=== PATIENT | female | born 1985 | race Caucasian/White ===

== ENCOUNTER 2018-07-15 08:57 | Inpatient (IN) | payer MEDICAID ==
[~2018-07-15] VITALS: Ht 157.5 cm; Wt 64.1 kg
[2018-07-15] MEDS ORDERED: PREN-93 PO (09:07)
[2018-07-15 09:08] VITALS: BP 119/75; PULSE 60; RESP 18
[2018-07-15 09:09] VITALS: Ht 157.5 cm; Wt 64.1 kg
[2018-07-15] MEDS ORDERED: LACTATED RINGER'S 1,000 ML IV SCH (09:22)
--- NOTE | 2018-07-15 09:22 | TRIAGE ---
OB Triage Datetime Report Generated by CPN: 07/15/2018 09:22 Datetime: 07/15/2018 09:16 Vaginal Exam Dilatation (cms): 5.0 Effacement (%): 80 Station: -2 Exam By: KHEMANI Vaginal Bleeding: Normal Show Cervix, Consistency: Soft Cervix, Position: Midposition Datetime: 07/15/2018 09:14 EGA: 40.1 Datetime: 07/15/2018 09:05 Assessment Type: Triage Maternal Assessment Level of Consciousness: Fully Conscious DTR's/Clonus: DTRs 2+; No Clonus Headache: Denies Blurred Vision: No Respiratory Effort: Unlabored; Regular Rhythm; Equal Expansion Breath Sounds, Left: Clear and Equal Breath Sounds, Right: Clear and Equal Nausea/Vomiting: Denies RUQ Epigastric Pain: Denies Lower Extremities Edema: None Degree: None Upper Extremities Edema: None Degree: None Facial Edema: None Fall Risk Assessment History of Falling: (0) No Secondary Diagnosis: (0) No Ambulatory Aid: (0) Bedrest/Nurse Assist IV Therapy: (0) No Gait: (0) Normal/Bedrest/Immobile Mental Status: (0) Oriented to Own Ability Fall Score: 0 Fall Risk Score Definition: No Risk: No action required Datetime: 07/15/2018 09:04 Time of Arrival: 07/15/2018 08:51 Arrived By: Ambulatory; Wheelchair Arrived From: Home Chief Complaint: pt. here c/o uc's Movement: Present Contractions: Irregular Rupture of Membranes: Denies Vaginal Bleeding: None Vaginal Discharge: Present Recent Sexual Intercouse: Denies Abdominal Trauma: Not Applicable Patient Complaints: Contractions; Cramping; Back Pain Time Provider Notified: 07/15/2018 09:20 Provider Notified: ESHAGHIAN Initial Plan: EFM/SVE Datetime: 07/15/2018 09:02 Labor Evaluation Monitor Mode: External Heart Rate Monitor Mode: External US
[2018-07-15] MEDS ORDERED: LIDOCAINE 1% (MPF) 30 ML INJ INJ PRN (09:30)
[2018-07-15] MEDS ORDERED: BUTORPHANOL 2 MG INJ IV PRN (09:30)
[2018-07-15] MEDS ORDERED: IBUPROFEN 600 MG TAB PO PRN (09:30)
[2018-07-15] MEDS ORDERED: CARBOPROST 250 MCG INJ IM PRN ×2 (09:30→13:30)
[2018-07-15] MEDS ORDERED: OXYTOCIN 30 UNITS/LR 500 ML IV PRN ×2 (09:30→13:30)
[2018-07-15] MEDS ORDERED: METHYLERGONOVINE 0.2 MG INJ IM PRN ×2 (09:30→13:30)
[2018-07-15] MEDS ORDERED: OXYTOCIN 30 UNITS/LR 500 ML IV SCH ×4 (09:30→13:24)
[2018-07-15] MEDS ORDERED: MISOPROSTOL 200 MCG TAB PR PRN ×2 (09:30→13:30)
[2018-07-15] MEDS ORDERED: FENTAnyl 2MCG/ML-ROPIV 0.2% 100 ML ONE (11:48)
--- NOTE | 2018-07-15 12:25 | PREOPHP ---
DATE OF ADMISSION: 07/15/2018 HISTORY OF PRESENT ILLNESS: Ms. Juan Alberto Jin is a 33-year-old 3, para 2, EDC 07/14/2018 intra uterine at 40 weeks and 1 day gestational age, admitted today in labor. She reports of hav ing contractions since early this morning. She denies any vaginal bleeding or discharge. Her prenat nc care took place at [facility]. PAST MEDICAL HISTORY: None. MEDICATIONS: vitamins. PAST SURGICAL HISTORY: None. OBSTETRICAL HISTORY: x2 vaginal delivery. GYNECOLOGIC HISTORY: 13, regular 3 to 4 days. Denies any sexually transmitted disease. Sexually ac tive with 1 partner. SOCIAL HISTORY: Denies any smoking, drugs or alcohol. FAMILY HISTORY: None. REVIEW OF SYSTEMS: All within normal except history of present illness. PHYSICAL EXAMINATION: HEENT: Within normal. LUNGS: CTA bilateral. CARDIOVASCULAR: S1, S2. Regular rate, rhythm. ABDOMEN: Gravid, nontender. Negative CVA bilateral. EXTREMITIES: Negative edema. No calf tenderness. PELVIC: Vaginal exam: 6 cm, 80%, -2 station, spontaneous rupture of membrane with positive meconium . heart tracing category 1. Tocometer: Regular contractions. ASSESSMENT: Intrauterine at term, in active labor. PLAN: Anticipated vaginal delivery. Dictated By: RASHIDA BARCENAS/TOSHA Conf#: [id number] DID#: [id number]
--- NOTE | 2018-07-15 13:24 | LDN ---
Date/Time of Note Date/Time of Note DATE: 07/15/18 TIME: 13:23 Delivery Summary Weeks of Gestation 40 Placenta Delivered: Spontaneously Meconium: Light Anesthesia type: Epidural Estimated blood loss: 200 Sponge & Needle done & correct: Yes All needle counts correct: Yes Any foreign bodies felt in the: No Infant Delivery Information Sex Sex: female Apgars 1 Minute: 8 5 Minute: 9 Suctioning Nose & mouth suctioned at willie: No Umbilical Cord Umbilical cord with: 3 Vessels Cord presentations: nuchal cord Nuchal cord present X: 1 Cord Blood was obtained: Yes RASHIDA BARCENAS MD Jul 15, 2018 13:24
[2018-07-15] MEDS ORDERED: WITCH HAZEL/GLYCERIN PAD PR PRN (13:30)
[2018-07-15] MEDS ORDERED: NACL 0.9% 3 ML SYG IV SCH (13:30)
[2018-07-15] MEDS ORDERED: OXYCODONE/ASPIRIN (4.88/325) TAB PO PRN ×2 (13:30)
[2018-07-15] MEDS ORDERED: ONDANSETRON 4 MG INJ IV PRN ×2 (13:30→14:00)
[2018-07-15] MEDS ORDERED: LANOLIN HPA 1 PKT TOP PRN (13:30)
[2018-07-15] MEDS ORDERED: ACETAMINOPHEN 325 MG TAB PO PRN (13:30)
--- NOTE | 2018-07-15 13:57 | PREAC ---
Date/Time of Note Date/Time of Note DATE: 07/15/18 TIME: 13:56 Anesthesia Eval and Record Evaluation Time Pre-Procedure Interview DATE: 07/15/18 TIME: 13:56 Age 33 Sex female NPO: 8 hrs Preoperative diagnosis IUP Planned procedure L&D Epidural Past Medical History Past Medical History: Includes Pulm: Asthma Surgery & Anesthesia Issues No known issue Meds Anticoagulation: No Beta Amanda within 24 hr: No Reason Beta Amanda not given: Pt. not on B-Amanda Reported Medications Vit No.124/Iron/FA ( Vitamin Tablet) 1 Each Tablet, 1 EACH PO DAILY, TAB 07/15/18 Current Medications Lactated Ringer's 1,000 ml @ 125 mls/hr Q8H IV Last administered on 07/15/18at 10:01; Admin Dose 125 MLS/HR; Start 07/15/18 at 09:22 Butorphanol Tartrate (Stadol) 2 mg Q2H PRN IV .PAIN; Start 07/15/18 at 09:30 Lidocaine (Xylocaine 1% (Mpf)) 30 ml ONCE PRN INJ .EPISIOTOMY; Start 07/15/18 at 09:30 Oxytocin/Lactated Ringer's 500 ml @ 500 mls/hr ONCE POST IV ; Start 07/15/18 at 09:30 Oxytocin/Lactated Ringer's 500 ml @ 125 mls/hr POST IV ; Start 07/15/18 at 09:30 Ibuprofen (Motrin) 600 mg ONCE PRN PO .PAIN 1-5; Start 07/15/18 at 09:30 Oxytocin/Lactated Ringer's 500 ml @ 0 mls/hr ONCE PRN IV .VAGINAL BLEEDING; Start 07/15/18 at 09:30 Methylergonovine Maleate (Methergine) 0.2 mg ONCE PRN IM .VAGINAL BLEEDING; Start 07/15/18 at 09:30 Carboprost Tromethamine (Hemabate) 250 mcg ONCE PRN IM .VAGINAL BLEEDING; Start 07/15/18 at 09:30 Misoprostol (Cytotec) 1,000 mcg ONCE PRN [place] .VAGINAL BLEEDING; Start 07/15/18 at 09:30 Oxytocin/Lactated Ringer's 500 ml @ 0 mls/hr FOR AUGMENTATION IV Last adm inistered on 07/15/18at 12:31; Admin Dose 1 MLS/HR; Start 07/15/18 at 12:30 Oxytocin/Lactated Ringer's 500 ml @ 50 mls/hr Q10H IV ; Start 07/15/18 at 13:24; Stop 07/15/18 at 23:23 IV Flush (NS 3 ml) 3 ml PER PROTOCOL IV ; Start 07/15/18 at 13:30 Ibuprofen (Motrin) 600 mg Q6 PO ; Start 07/15/18 at 18:00 Oxycodone/Aspirin (Percodan) 1 tab Q3H PRN PO .PAIN 1-5; Start 07/15/18 at 13:30 Oxycodone/Aspirin (Percodan) 2 tab Q3H PRN PO .PAIN 6-10; Start 07/15/18 at 13:30 Ondansetron HCl (Zofran Inj) 4 mg Q6H PRN IV NAUSEA/VOMITING; Start 07/15/18 at 13:30 Senna/Docusate Sodium (Senokot-S) 1 tab BID PO ; Start 07/15/18 at 21:00 Witch Antoinette/ Glycerin (Tucks Pads) 1 pad BEDSIDE MEDICATION PRN [place] .HE MORRHOID/EPISIOTOMY PAIN; Start 07/15/18 at 13:30 Benzocaine (Dermoplast [place]) 1 spray BEDSIDE MEDICATION PRN TOP .HEMMORHOID/EPISIOTOMY PAIN; Start 07/15/18 at 13:30 Lanolin (Lanolin Hpa) 1 applic BEDSIDE MEDICATION PRN TOP .NIPPLES; Start 07/15/18 at 13:30 Acetaminophen (Tylenol Tab) 650 mg Q4H PRN PO .TEMP; Start 07/15/18 at 13:30 Oxytocin/Lactated Ringer's 500 ml @ 0 mls/hr ONCE PRN IV .VAGINAL BLEEDING; Start 07/15/18 at 13:30 Methylergonovine Maleate (Methergine) 0.2 mg ONCE PRN IM .VAGINAL BLEEDING; Start 07/15/18 at 13:30 Carboprost Tromethamine (Hemabate) 250 mcg ONCE PRN IM .VAGINAL BLEEDING; Start 07/15/18 at 13:30 Misoprostol (Cytotec) 1,000 mcg ONCE PRN [place] .VAGINAL BLEEDING; Start 07/15/18 at 13:30 Meds reviewed: Yes Allergies Coded Allergies: No Known Allergy (Verified , 03/21/10) Allergies Reviewed: Yes Labs/Studies Labs Reviewed: Reviewed by anesthesiologist Result Diagram: 07/15/18 0940 Laboratory Tests 07/15/18 09:40 Blood Bank Test 07/15/18 09:40 Antibody Screen NEGATIVE Blood Type O POSITIVE Rh Immune Globulin Candidate NO test: Positive Studies: ECG Pre-procedure Exam Last vitals Vital Signs Date Temp Pulse Resp B/P (MAP) Pulse Ox O2 O2 Flow FiO2 Time Delivery Rate 07/15/18 98.4 60 18 119/75 Room Air 09:08 (90) Airway: Adequate mouth opening, Adequate thyromental dist Mallampati: Mallampati II Teeth: Normal Lung: Normal Heart: Normal ASA Physical Status ASA physical status: 2 Emergency: None Planned Anesthetic Neuraxial: Epidural Planned Pain Management Parenteral pain med Pre-operative Attestations Prior to commencing anesthesia and surgery, the patient was re-evaluated, there was verification of: *The patient's identity *The results of appropriate recent lab work and preoperative vital signs *The above evaluation not changing prior to induction *Anesthetic plan, risk benefits, alternative and complications discussed with patient/family; questions answered; patient/family understands, accepts and wish es to proceed. WISAM HERNANDEZ MD Jul 15, 2018 13:57
[2018-07-15] MEDS ORDERED: NALOXONE (0.4 MG/ML) INJ IV PRN (14:00)
[2018-07-15] MEDS ORDERED: FENTAnyl 2MCG/ML-ROPIV 0.2% 100 ML BAG EPI SCH (14:00)
[2018-07-15] MEDS ORDERED: DIPHENHYDRAMINE 50 MG INJ IV PRN (14:00)
--- NOTE | 2018-07-15 14:08 | PAC ---
Date/Time of Note Date/Time of Note DATE: 07/15/18 TIME: 14:07 Post-Anesthesia Notes Post-Anesthesia Note Last documented vital signs Vital Signs Date Temp Pulse Resp B/P (MAP) Pulse Ox O2 O2 Flow FiO2 Time Delivery Rate 07/15/18 98.4 60 18 119/75 Room Air 09:08 (90) Activity: WNL Respiratory function: WNL Cardiovascular function: WNL Mental status: Baseline Pain reasonably controlled: Yes Hydration appropriate: Yes Nausea/Vomiting absent: Yes Comments BP:112/56, P:78, Spo2:100%, T:98,8 WISAM HERNANDEZ MD Jul 15, 2018 14:08
[2018-07-15 15:10] VITALS: BP 137/77; PULSE 52; RESP 17
[2018-07-15] MEDS: IBUPROFEN 600 MG TAB PO SCH (17:54)
[2018-07-15 20:00] VITALS: BP 105/63; PULSE 65; RESP 19
[2018-07-15] MEDS ORDERED: ALBUTEROL HFA 8 GM INHALER INH PRN (21:00)
[2018-07-15] MEDS: BENZOCAINE 20% 56 ML SPRAY TOP PRN (21:20)
[2018-07-15] MEDS: SENNA/DOCUSATE NA (8.6MG/50MG) TAB PO SCH (21:21)
[2018-07-16] VITALS: BP 102/69; PULSE 68; RESP 18
[2018-07-16] MEDS: IBUPROFEN 600 MG TAB PO SCH ×5 (00:06→23:52)
[2018-07-16 04:00] VITALS: BP 100/58; PULSE 57; RESP 18
[2018-07-16 08:42] VITALS: BP 100/69; PULSE 65; RESP 18
[2018-07-16] MEDS: SENNA/DOCUSATE NA (8.6MG/50MG) TAB PO SCH ×2 (09:27→21:22)
--- NOTE | 2018-07-16 11:06 | DS ---
Date/Time of Note Date/Time of Note DATE: 07/16/18 TIME: 11:05 Obstetrical Discharge Record Final Diagnosis Final Diagnosis: Term delivered Vaginal Delivery Obstetrical Delivery: Spontaneous Condition on Discharge Physical Assessment Last Vitals: stable afebrile Voiding: Yes Bowel Movement: Yes Breast: Soft, non-tender, Filling Fundus: Firm Abdomen and Incision: soft nt Calf Tenderness: No Patient Condition: Fair RASHIDA BARCENAS MD Jul 16, 2018 11:06
--- NOTE | 2018-07-16 11:07 | PD.PPDC ---
SPEECH AND LANGUAGE ASSISTANT Discharge Instruction Condition [id number] Patient Condition: [id number] Fair Diet [id number] Diet: [id number] Resume Regular Diet Activity/Restrictions [id number] Activity: [id number] Normal Activity May Shower [id number] Restrictions: [id number] No Exercising No Lifting No Driving No Sexual Activity Nothing in the Vagina No [place] No Tampons, douche Follow-up Follow-up with Physician: 3, Week/Weeks Return to clinic for [id number] AIR TECHNICIAN Instructions: [id number] Fever greater than 101 Chills Worsening abdominal pain Excessive Vaginal Bleeding More than 2 pads per hour Unable to tolerate diet [id number] OB Instructions: Fyztx2s Breast Tenderness Depression Blurried Vision Headache RASHIDA BARCENAS MD Jul 16, 2018 11:07
[2018-07-16 15:47] VITALS: BP 116/74; PULSE 60; RESP 18
[2018-07-16 20:00] VITALS: BP 114/75; PULSE 66; RESP 20
[2018-07-17 04:00] VITALS: BP 97/63; PULSE 56; RESP 16
[2018-07-17] MEDS: IBUPROFEN 600 MG TAB PO SCH ×2 (05:28→12:00)
[2018-07-17] MEDS: BENZOCAINE 20% 56 ML SPRAY TOP PRN (06:56)
[2018-07-17 08:00] VITALS: BP 106/61; PULSE 73; RESP 18
[2018-07-17] MEDS: SENNA/DOCUSATE NA (8.6MG/50MG) TAB PO SCH (09:00)
== END 2018-07-17 14:37 | disposition home or self-care (01) | DRG 807 ==
LOC: L-D 08:57 → OBT 08:57 → L-D 09:20 → OBT 09:21 → PP1 14:51
PROVIDERS: ADMIT Obstetrics & Gynecology; ATTEND Obstetrics & Gynecology
PROC: 10E0XZZ Delivery of Products of Conception, External Approach (ICD-10-PCS; principal; 2018-07-15)
DX: O48.0 Post-term pregnancy (principal); Z37.0 Single live birth; Z3A.40 40 weeks gestation of pregnancy; O69.81X0 Labor and delivery complicated by cord around neck, without compression, not applicable or unspecified
CPT/HCPCS: 62319; 76815; 85014; 85018; 85025; 85610; 85730; 86592; 86850; 86900; 86901; 87340; 99464; A4310; G0463; J2590; J3010; J7120

== ENCOUNTER 2018-08-16 19:37 | Inpatient (IN) | payer MEDICAID ==
[~2018-08-16] VITALS: Ht 129.5 cm; Wt 58.5 kg
[~2018-08-16 19:37] MED LIST: PREN-93 PO
[2018-08-16] MEDS ORDERED: SODIUM CHLORIDE 0.9% 1L BAG IV* STA (20:48)
[2018-08-16] MEDS ORDERED: KETOROLAC 30 MG INJ IV STA (20:48)
[2018-08-16] MEDS ORDERED: AMPICILLIN/SULB 3 GM/NS (PMX) 100 ML IVPB ONE (22:00)
[2018-08-16] MEDS ORDERED: CEFTRIAXONE 1 GM/50 ML (PMX) 50 ML IVPB ONE (23:30)
--- NOTE | 2018-08-16 23:32 | ERD ---
ER Documentation Chief Complaint Chief Complaint fever x 1 week; bodyaches HPI 33-year-old female with no significant past medical history 33 days presenting with 2 weeks of fevers, body aches, chills. She was seen at another ER but only given ibuprofen without any testing done. She states that she is breast-feeding but is unable to get much out of her right breast. She has noticed a mass for the past 2 weeks that is painful and progressively worsening. She denies any chest pain, shortness of breath, cough, headache, neck stiffness, sore throat, recent URI, abdominal pain, vomiting or diarrhea. No dysuria. No vaginal discharge. No intercourse since delivery. ROS All systems reviewed and are negative except as per history of present illness. Medications Home Meds Reported Medications Vit No.124/Iron/FA ( Vitamin Tablet) 1 Each Tablet, 1 EACH PO DAILY, TAB 07/15/18 Allergies Allergies: Coded Allergies: No Known Allergy (Verified , 03/21/10) PMhx/Soc Medical and Surgical Hx: pt denies Medical Hx, pt denies Surgical Hx History of Surgery: Yes (Right breast lumpectomy) Hx Miscellaneous Medical Probl: Yes (vaginal 33 days ago. History of breast masses that were removed from the right breast, states not malignant) Hx Alcohol Use: No Hx Substance Use: No Hx Tobacco Use: No Smoking Status: Unknown if ever smoked FmHx Family History: No diabetes Physical Exam Vitals Vital Signs Date Temp Pulse Resp B/P (MAP) Pulse Ox O2 O2 Flow FiO2 Time Delivery Rate 08/16/18 92 23 101/71 98 Room Air 22:30 (81) 08/16/18 98.9 98 16 107/72 98 Room Air 20:28 (84) 08/16/18 101.6 102 18 119/67 98 19:40 (84) Physical Exam Const: No acute distress, nontoxic Head: Atraumatic Eyes: Bilateral conjunctival injection. ENT: Normal External Ears, Nose and Mouth. posterior oropharynx normal without erythema or exudate. Neck: Full range of motion. No meningismus. Resp: Clear to auscultation bilaterally Breast: Right breast with firm mass at 9:00. No overlying erythema. It is tender to palpation without fluctuance. Left breast without any masses. Cardio: Tachycardic with regular rhythm, no murmurs Abd: Soft, non tender, non distended. No masses. Normal bowel sounds Skin: No petechiae or rashes Back: No midline or flank tenderness Ext: No cyanosis, or edema Neur: Awake and alert, normal speech, no facial asymmetry, moving all extremities Psych: Normal Mood and Affect Result Diagram: 08/16/18201708/16/182017 Results 24 hrs Laboratory Tests Test 08/16/18 20:18 08/16/18 22:36 08/16/18 23:14 08/16/18 23:16 White Blood Count 14.4 10^3/ul Red Blood Count 4.16 10^6/ul Hemoglobin 12.7 g/dl Hematocrit 38.2 % Mean Corpuscular 91.8 fl Volume Mean Corpuscular 30.5 pg Hemoglobin Mean Corpuscular 33.2 g/dl Hemoglobin Concent Red Cell 12.7 % Distribution Width Platelet Count 323 10^3/UL Mean Platelet 8.9 fl Volume Immature 0.600 % Granulocytes % Neutrophils % 77.2 % Lymphocytes % 8.1 % Monocytes % 6.5 % Eosinophils % 7.1 % Basophils % 0.5 % Nucleated Red 0.0 /100WBC Blood Cells % Immature 0.080 10^3/ul Granulocytes # Neutrophils # 11.1 10^3/ul Lymphocytes # 1.2 10^3/ul Monocytes # 0.9 10^3/ul Eosinophils # 1.0 10^3/ul Basophils # 0.1 10^3/ul Nucleated Red 0.0 10^3/ul Blood Cells # Urine Color YELLOW Urine Clarity CLEAR Urine pH 5.0 Urine Specific 1.025 [place] Urine Ketones NEGATIVE mg/dL Urine Nitrite NEGATIVE mg/dL Urine Bilirubin NEGATIVE mg/dL Urine Urobilinogen NEGATIVE mg/dL Urine Leukocyte 1+ Marie/ul Esterase Urine Microscopic 4 /HPF RBC Urine Microscopic 13 /HPF WBC Urine Squamous FEW /HPF Epithelial Cells Urine Hemoglobin 1+ mg/dL Urine Glucose NEGATIVE mg/dL Urine Total NEGATIVE mg/dl Protein Sodium Level 141 mmol/L Potassium Level 4.1 mmol/L Chloride Level 107 mmol/L Carbon Dioxide 26 mmol/L Level Anion Gap 8 Blood Urea 12 mg/dl Nitrogen Creatinine 0.93 mg/dl Est Glomerular > 60 mL/min Filtrat Rate mL/min Glucose Level 116 mg/dl Lactic Acid Level 1.3 mmol/L 0.7 mmol/L Calcium Level 9.2 mg/dl Total Bilirubin 0.2 mg/dl Direct Bilirubin 0.00 mg/dl Indirect Bilirubin 0.2 mg/dl Aspartate Amino 22 IU/L Transf (AST/SGOT) Alanine 21 IU/L Aminotransferase ( ALT/SGPT) Alkaline 112 IU/L Phosphatase Creatine Kinase 22 IU/L Total Protein 7.2 g/dl Albumin 3.8 g/dl Globulin 3.40 g/dl Albumin/Globulin 1.11 Ratio Bedside Urine pH 5.5 (LAB) Bedside Urine Negative Protein (LAB) Bedside Urine Negative Glucose (UA) Bedside Urine Negative Ketones (LAB) Bedside Urine Trace-lysed Blood Bedside Urine Negative Nitrite (LAB) Bedside Urine Trace Leukocyte Esterase (L POC Beta HCG, NEGATIVE Qualitative Current Medications Medications Dose Sig/Dennis Start Time Status Last (Trade) Ordered Route PRN Stop Time Admin Dose Reason Admin Sodium 1,700 ml BOLUS OVER 2 08/16/18 DC 08/16/18 Chloride HOURS STAT 20:48 21:01 (NS) IV* 08/16/18 20:51 Ketorolac 30 mg ONCE STAT 08/16/18 DC 08/16/18 Tromethamine IV 20:48 21:03 (Toradol) 08/16/18 20:51 Ampicillin 100 ml @ ONCE ONCE 08/16/18 DC 08/16/18 Sodium/ 100 mls/hr IVPB 22:00 22:15 Sulbactam 08/16/18 22:59 Sodium Ceftriaxone 50 ml @ ONCE ONCE 08/16/18 Sodium 100 mls/hr IVPB 23:30 08/16/18 23:59 Ondansetron 4 mg BRIDGE ORDER 08/17/18 HCl (Zofran PRN IV 00:00 08/17/18 Inj) NAUSEA/VOMITI 23:59 NG 650 mg ER BRIDGE 08/17/18 Acetaminophen PRN PO 00:00 08/17/18 (Tylenol .MILD PAIN 23:59 Tab) 1-3 OR TEMP Procedures/MDM EMERGENT LABS AND DIAGNOSTIC STUDIES: Lab Results above were reviewed and interpreted by me. CBC: Leukocytosis, unclear etiology. No evidence of anemia CMP: No evidence of electrolyte abnormality, renal failure, hypoglycemia, liver failure, or biliary obstruction Lactate within normal limits without evidence of sepsis or tissue hypoperfusion UA: no evidence of infection Radiology Results as interpreted by Radiology below were reviewed by Crissy barlow MD: Chest x-ray shows no acute abnormalities Pelvic ultrasound pending Initial Nursing notes reviewed. Previous Medical Records requested via the Electronic Health Record. EMERGENCY DEPARTMENT COURSE / MEDICAL DECISION MAKING: Patient is presenting with fever and chills for the past 2 weeks. Fevers of unknown origin. She was febrile and tachycardic upon arrival. However code sepsis was not activated as patient does not have a source of infection. Upon further evaluation, the patient does seem to have a right breast mass, but exam is not consistent with mastitis. Ultrasound was done and it seems like the mass appears concerning for possible malignancy. The source of her fever is unclear at this time. Patient does not have good outpatient follow-up and will need admission for further workup of her breast mass as well as further workup for her fever. Blood cultures are pending. Antibiotics given. Low suspicion for pelvic infection. Accepting Care Team: Current data and ongoing care discussed. Time: Time of admission Primary Provider: Dr. Avila Consulting: None Outstanding Data: Pelvic ultrasound Departure Diagnosis: Primary Impression: Fever of unknown origin Additional Impression: Breast mass, right Condition: Fair LEATHA CISSE MD Aug 16, 2018 23:31
--- NOTE | 2018-08-16 23:59 | HP ---
Date/Time of Note Date/Time of Note DATE: 08/16/18 TIME: 23:59 Assessment/Plan VTE Prophylaxis SCD applied (from Nsg): Yes Pharmacological prophylaxis: NA/contraindicated Pharm contraindication: other (Patient with right breast mass, awaiting biopsy.) Lines/Catheters IV Catheter Type (from Nrsg): Peripheral IV Assessment/Plan Assessment/Plan 1. Right breast mass, highly suspicious for malignancy -Obtain biopsy -Oncology consult 2. Sepsis: As evidenced by fever and tachycardia and leukocytosis:, Likely secondary to UTI and possibly right breast cellulitis as well -IV antibiotic -Follow-up urine culture and blood culture results 3. History of asthma: No sign of acute exacerbation Result Diagram: 08/16/18201708/16/182017 Results 24hrs Laboratory Tests Test 08/16/18 20:18 08/16/18 22:36 08/16/18 23:14 08/16/18 23:16 White Blood Count 14.4 #H Red Blood Count 4.16 L Hemoglobin 12.7 Hematocrit 38.2 Mean Corpuscular 91.8 Volume Mean Corpuscular 30.5 Hemoglobin Mean Corpuscular 33.2 Hemoglobin Concent Red Cell 12.7 Distribution Width Platelet Count 323 # Mean Platelet 8.9 Volume Immature 0.600 H Granulocytes % Neutrophils % 77.2 H Lymphocytes % 8.1 L Monocytes % 6.5 Eosinophils % 7.1 H Basophils % 0.5 Nucleated Red Blood 0.0 Cells % Immature 0.080 H Granulocytes # Neutrophils # 11.1 H Lymphocytes # 1.2 Monocytes # 0.9 Eosinophils # 1.0 H Basophils # 0.1 Nucleated Red Blood 0.0 Cells # Urine Color YELLOW Urine Clarity CLEAR Urine pH 5.0 Urine Specific 1.025 [place] Urine Ketones NEGATIVE Urine Nitrite NEGATIVE Urine Bilirubin NEGATIVE Urine Urobilinogen NEGATIVE Urine Leukocyte 1+ H Esterase Urine Microscopic 4 RBC Urine Microscopic 13 H WBC Urine Squamous FEW Epithelial Cells Urine Hemoglobin 1+ H Urine Glucose NEGATIVE Urine Total Protein NEGATIVE Sodium Level 141 Potassium Level 4.1 Chloride Level 107 Carbon Dioxide 26 Level Anion Gap 8 Blood Urea Nitrogen 12 Creatinine 0.93 Est Glomerular > 60 Filtrat Rate mL/min Glucose Level 116 Lactic Acid Level 1.3 0.7 Calcium Level 9.2 Total Bilirubin 0.2 Direct Bilirubin 0.00 Indirect Bilirubin 0.2 Aspartate Amino 22 Transf (AST/SGOT) Alanine 21 Aminotransferase (A LT/SGPT) Alkaline 112 Phosphatase Creatine Kinase 22 L Total Protein 7.2 Albumin 3.8 Globulin 3.40 H Albumin/Globulin 1.11 Ratio Bedside Urine pH 5.5 (LAB) Bedside Urine Negative Protein (LAB) Bedside Urine Negative Glucose (UA) Bedside Urine Negative Ketones (LAB) Bedside Urine Blood Trace-lysed H Bedside Urine Negative Nitrite (LAB) Bedside Urine Trace H Leukocyte Esterase (L POC Beta HCG, NEGATIVE Qualitative HPI/ROS Admit Date/Time Admit Date/Time Hx of Present Illness This is a 33-year-old female asthma who is 33 days who presents the ER complaining of fever, generalized body ache X 2 weeks. She also complains of right breast mass. Denied chest pain, shortness of breath, diarrhea. Who presents the ER, she was febrile with temperature 100.6, heart rate 102, WBC 14.4, UA consistent with UTI. Ultrasound of the breast unfortunately highly suspicion for right breast carcinoma. PMH/Family/Social Past Medical History Medical History: other (See HPI) Medications Current Medications Ondansetron HCl (Zofran Inj) 4 mg BRIDGE ORDER PRN IV NAUSEA/VOMITING; Start 08/17/18 at 00:00; Stop 08/17/18 at 23:59 Acetaminophen (Tylenol Tab) 650 mg ER BRIDGE PRN PO .MILD PAIN 1-3 OR TEMP; Start 08/17/18 at 00:00; Stop 08/17/18 at 23:59 Coded Allergies: No Known Allergy (Verified , 03/21/10) Past Surgical History Past Surgical Hx: other (See HPI) Family History Significant Family History: other Social History Alcohol Use: none Smoking Status: Unknown if ever smoked Drug Use: none Exam/Review of Systems Vital Signs Vitals Vital Signs Date Temp Pulse Resp B/P (MAP) Pulse Ox O2 O2 Flow FiO2 Time Delivery Rate 08/16/18 98.6 86 19 100/74 100 Room Air 23:55 (83) Exam Constitutional: alert, oriented, well developed Head: normocephalic, atraumatic Eyes: EOMI, PERRL Respiratory: clear to auscultation Cardiovascular: regular rate and rhythm Gastrointestinal: soft, non-tender Extremities: edema Additional Comments Right breast swelling/mass DIANA COURTNEY MD Aug 16, 2018 23:59
[2018-08-17] VITALS (7 sets, daily range): BP systolic 91–110; BP diastolic 62–69; PULSE 72–98; RESP 17–19; Ht 129.5 cm; Wt 58.5 kg
[2018-08-17] MEDS ORDERED: ONDANSETRON 4 MG INJ IV PRN ×2 (00:30)
[2018-08-17] MEDS ORDERED: NACL 0.9% 3 ML SYG IV SCH (00:30)
[2018-08-17] MEDS ORDERED: VANCOMYCIN IV PER PHARMACY XX SCH (00:30)
[2018-08-17] MEDS ORDERED: ACETAMINOPHEN 325 MG TAB PO PRN ×2 (00:30)
[2018-08-17] MEDS ORDERED: AMPICILLIN/SULB 3 GM/NS (PMX) 100 ML IVPB SCH (00:30)
[2018-08-17] MEDS: SOD CHLORIDE 0.9% 1,000 ML IV SCH ×3 (01:24→18:46)
[2018-08-17] MEDS ORDERED: VANCOMYCIN HCL 1.25 GM in SOD CHLORIDE 0.9% 250 ML IVPB SCH (05:00)
[2018-08-17] MEDS: HYDROCODONE/APAP (5/325) TAB PO PRN ×2 (06:08→15:58)
--- NOTE | 2018-08-17 10:58 | PN ---
Date/Time of Note Date/Time of Note DATE: 08/17/18 TIME: 10:55 Assessment/Plan VTE Prophylaxis SCD applied (from Nsg): Yes Pharmacological prophylaxis: NA/contraindicated Pharm contraindication: low risk/ambulating Lines/Catheters IV Catheter Type (from Nrsg): Peripheral IV Assessment/Plan Hospital Course SUBJECTIVE: Continues to complain of generalized body aches. OBJECTIVE: Physical Exam General: Adequately build 33 year-old female lying in bed in no apparent distress. HEENT: Normocephalic, atraumatic. Eyes: Anicteric sclerae, conjunctivae clear. ENT: Nasal septum midline, oral mucosa moist. Neck supple, no JVD noticed. Respiratory: Bilaterally diminished breath sounds. No use of accessory muscles of respiration. No adventitious breath sounds. Cardiovascular: S1, S2 heard. Regular rate and rhythm. Abdomen: Soft, nontender, and nondistended. Bowel sounds positive in all 4 quadrants. Genitourinary: Deferred. Extremities: No cyanosis, no clubbing. RUE edema. Peripheral pulses palpable. Neurologic: Cranial nerves II through XII grossly intact. The patient is awake, alert, and oriented. Breasts (examined in the presence of a female cooler room worker): Right breast edema and tenderness. Palpable mass on the right breast at the 9 o'clock position. Left breast within normal limits. Labs & Vitals per chart ASSESSMENT & PLAN This is a 33-year-old female who had a normal vaginal delivery on 07/15/2018. The patient has a prior history of fibroma of the right breast approximately 3 years ago status post surgical removal. The patient came to the emergency room with chief complaint of fevers, chills, generalized body aches, and right breast pain that has been going on for the past 2 weeks. The patient had underlying leukocytosis, febrile illness (101.6), and tachycardia, present on admission. The patient was admitted inpatient setting for further treatment and evaluation. 1. Sepsis with leukocytosis, tachycardia, and febrile illness, present on admission. -Most probably secondary to underlying right-sided mastitis -Continue antimicrobials including coverage for anaerobes and MRSA. -ID consult for antimicrobial management. -Obtain andrade cultures. 2. Lactational mastitis. -Continue Unasyn with vancomycin. -Obtain cultures of right breast secretion/milk. 3. Palpable 4 x 2.7 x 4.3 cm heterogeneous echotexture largely hypoechoic solid appearing mass of the right breast. -CT-guided biopsy ordered. -Obtain surgical consult. 4. Breast feeding status. - Pump and dump. 5. Asthma. -Stable. -No evidence of any exacerbation. 6. Fluids, electrolytes, and nutrition. -Regular diet. 7. DVT prophylaxis. -Bilateral SCDs. 8. Plan. -Continue pain control. -Continue empiric antimicrobials. -Await surgical consult and IR guided biopsy. The patient was seen in collaboration with Dr. Mendoza. Result Diagram: 08/17/18 0452 08/17/18 0451 Results 24hrs Laboratory Tests Test 08/16/18 20:18 08/16/18 22:36 08/16/18 23:14 08/16/18 23:16 White Blood Count 14.4 #H Red Blood Count 4.16 L Hemoglobin 12.7 Hematocrit 38.2 Mean Corpuscular 91.8 Volume Mean Corpuscular 30.5 Hemoglobin Mean Corpuscular 33.2 Hemoglobin Concent Red Cell 12.7 Distribution Width Platelet Count 323 # Mean Platelet 8.9 Volume Immature 0.600 H Granulocytes % Neutrophils % 77.2 H Lymphocytes % 8.1 L Monocytes % 6.5 Eosinophils % 7.1 H Basophils % 0.5 Nucleated Red Blood 0.0 Cells % Immature 0.080 H Granulocytes # Neutrophils # 11.1 H Lymphocytes # 1.2 Monocytes # 0.9 Eosinophils # 1.0 H Basophils # 0.1 Nucleated Red Blood 0.0 Cells # Urine Color YELLOW Urine Clarity CLEAR Urine pH 5.0 Urine Specific 1.025 [place] Urine Ketones NEGATIVE Urine Nitrite NEGATIVE Urine Bilirubin NEGATIVE Urine Urobilinogen NEGATIVE Urine Leukocyte 1+ H Esterase Urine Microscopic 4 RBC Urine Microscopic 13 H WBC Urine Squamous FEW Epithelial Cells Urine Hemoglobin 1+ H Urine Glucose NEGATIVE Urine Total Protein NEGATIVE Sodium Level 141 Potassium Level 4.1 Chloride Level 107 Carbon Dioxide 26 Level Anion Gap 8 Blood Urea Nitrogen 12 Creatinine 0.93 Est Glomerular > 60 Filtrat Rate mL/min Glucose Level 116 Lactic Acid Level 1.3 0.7 Calcium Level 9.2 Total Bilirubin 0.2 Direct Bilirubin 0.00 Indirect Bilirubin 0.2 Aspartate Amino 22 Transf (AST/SGOT) Alanine 21 Aminotransferase (A LT/SGPT) Alkaline 112 Phosphatase Creatine Kinase 22 L Total Protein 7.2 Albumin 3.8 Globulin 3.40 H Albumin/Globulin 1.11 Ratio Bedside Urine pH 5.5 (LAB) Bedside Urine Negative Protein (LAB) Bedside Urine Negative Glucose (UA) Bedside Urine Negative Ketones (LAB) Bedside Urine Blood Trace-lysed H Bedside Urine Negative Nitrite (LAB) Bedside Urine Trace H Leukocyte Esterase (L POC Beta HCG, NEGATIVE Qualitative Test 08/17/18 01:06 08/17/18 04:51 08/17/18 04:52 Lactic Acid Level 0.7 Sodium Level 140 Potassium Level 4.0 Chloride Level 109 Carbon Dioxide 24 Level Anion Gap 7 Blood Urea Nitrogen 12 Creatinine 0.57 Est Glomerular > 60 Filtrat Rate mL/min Glucose Level 97 Calcium Level 8.2 L Phosphorus Level 3.2 Magnesium Level 1.8 Total Bilirubin 0.2 Direct Bilirubin 0.00 Indirect Bilirubin 0.2 Aspartate Amino 19 Transf (AST/SGOT) Alanine 25 Aminotransferase (A LT/SGPT) Alkaline 97 Phosphatase Total Protein 6.1 # Albumin 3.1 L Globulin 3.00 Albumin/Globulin 1.03 Ratio White Blood Count 12.9 H Red Blood Count 3.86 L Hemoglobin 11.8 L Hematocrit 35.4 L Mean Corpuscular 91.7 Volume Mean Corpuscular 30.6 Hemoglobin Mean Corpuscular 33.3 Hemoglobin Concent Red Cell 12.8 Distribution Width Platelet Count 264 Mean Platelet 9.0 Volume Immature 0.500 H Granulocytes % Neutrophils % 76.2 Lymphocytes % 9.3 L Monocytes % 7.2 Eosinophils % 6.5 Basophils % 0.3 Nucleated Red Blood 0.0 Cells % Immature 0.060 H Granulocytes # Neutrophils # 9.8 H Lymphocytes # 1.2 Monocytes # 0.9 Eosinophils # 0.8 H Basophils # 0.0 Nucleated Red Blood 0.0 Cells # Exam/Review of Systems Exam Vitals Vital Signs Date Temp Pulse Resp B/P (MAP) Pulse Ox O2 O2 Flow FiO2 Time Delivery Rate 08/17/18 98.2 72 18 100/64 94 Room Air 07:58 (76) Intake and Output 08/16/18 08/16/18 08/17/18 1515:00 23:00 07:00 IntakeIntake Total 1700 ml 673.333 ml BalanceBalance 1700 ml 673.333 ml Results Results 24hrs Laboratory Tests Test 08/16/18 20:18 08/16/18 22:36 08/16/18 23:14 08/16/18 23:16 White Blood Count 14.4 #H Red Blood Count 4.16 L Hemoglobin 12.7 Hematocrit 38.2 Mean Corpuscular 91.8 Volume Mean Corpuscular 30.5 Hemoglobin Mean Corpuscular 33.2 Hemoglobin Concent Red Cell 12.7 Distribution Width Platelet Count 323 # Mean Platelet 8.9 Volume Immature 0.600 H Granulocytes % Neutrophils % 77.2 H Lymphocytes % 8.1 L Monocytes % 6.5 Eosinophils % 7.1 H Basophils % 0.5 Nucleated Red Blood 0.0 Cells % Immature 0.080 H Granulocytes # Neutrophils # 11.1 H Lymphocytes # 1.2 Monocytes # 0.9 Eosinophils # 1.0 H Basophils # 0.1 Nucleated Red Blood 0.0 Cells # Urine Color YELLOW Urine Clarity CLEAR Urine pH 5.0 Urine Specific 1.025 [place] Urine Ketones NEGATIVE Urine Nitrite NEGATIVE Urine Bilirubin NEGATIVE Urine Urobilinogen NEGATIVE Urine Leukocyte 1+ H Esterase Urine Microscopic 4 RBC Urine Microscopic 13 H WBC Urine Squamous FEW Epithelial Cells Urine Hemoglobin 1+ H Urine Glucose NEGATIVE Urine Total Protein NEGATIVE Sodium Level 141 Potassium Level 4.1 Chloride Level 107 Carbon Dioxide 26 Level Anion Gap 8 Blood Urea Nitrogen 12 Creatinine 0.93 Est Glomerular > 60 Filtrat Rate mL/min Glucose Level 116 Lactic Acid Level 1.3 0.7 Calcium Level 9.2 Total Bilirubin 0.2 Direct Bilirubin 0.00 Indirect Bilirubin 0.2 Aspartate Amino 22 Transf (AST/SGOT) Alanine 21 Aminotransferase (A LT/SGPT) Alkaline 112 Phosphatase Creatine Kinase 22 L Total Protein 7.2 Albumin 3.8 Globulin 3.40 H Albumin/Globulin 1.11 Ratio Bedside Urine pH 5.5 (LAB) Bedside Urine Negative Protein (LAB) Bedside Urine Negative Glucose (UA) Bedside Urine Negative Ketones (LAB) Bedside Urine Blood Trace-lysed H Bedside Urine Negative Nitrite (LAB) Bedside Urine Trace H Leukocyte Esterase (L POC Beta HCG, NEGATIVE Qualitative Test 08/17/18 01:06 08/17/18 04:51 08/17/18 04:52 Lactic Acid Level 0.7 Sodium Level 140 Potassium Level 4.0 Chloride Level 109 Carbon Dioxide 24 Level Anion Gap 7 Blood Urea Nitrogen 12 Creatinine 0.57 Est Glomerular > 60 Filtrat Rate mL/min Glucose Level 97 Calcium Level 8.2 L Phosphorus Level 3.2 Magnesium Level 1.8 Total Bilirubin 0.2 Direct Bilirubin 0.00 Indirect Bilirubin 0.2 Aspartate Amino 19 Transf (AST/SGOT) Alanine 25 Aminotransferase (A LT/SGPT) Alkaline 97 Phosphatase Total Protein 6.1 # Albumin 3.1 L Globulin 3.00 Albumin/Globulin 1.03 Ratio White Blood Count 12.9 H Red Blood Count 3.86 L Hemoglobin 11.8 L Hematocrit 35.4 L Mean Corpuscular 91.7 Volume Mean Corpuscular 30.6 Hemoglobin Mean Corpuscular 33.3 Hemoglobin Concent Red Cell 12.8 Distribution Width Platelet Count 264 Mean Platelet 9.0 Volume Immature 0.500 H Granulocytes % Neutrophils % 76.2 Lymphocytes % 9.3 L Monocytes % 7.2 Eosinophils % 6.5 Basophils % 0.3 Nucleated Red Blood 0.0 Cells % Immature 0.060 H Granulocytes # Neutrophils # 9.8 H Lymphocytes # 1.2 Monocytes # 0.9 Eosinophils # 0.8 H Basophils # 0.0 Nucleated Red Blood 0.0 Cells # Medications Medication Current Medications Ondansetron HCl (Zofran Inj) 4 mg BRIDGE ORDER PRN IV NAUSEA/VOMITING; Start 08/17/18 at 00:00; Stop 08/17/18 at 23:59 Acetaminophen (Tylenol Tab) 650 mg ER BRIDGE PRN PO .MILD PAIN 1-3 OR TEMP; Start 08/17/18 at 00:00; Stop 08/17/18 at 23:59 Sodium Chloride 1,000 ml @ 125 mls/hr Q8H IV Last administered on 08/17/18at 01:24; Admin Dose 125 MLS/HR; Start 08/17/18 at 00:02 IV Flush (NS 3 ml) 3 ml PER PROTOCOL IV ; Start 08/17/18 at 00:30 Ondansetron HCl (Zofran Inj) 4 mg Q6H PRN IV NAUSEA/VOMITING; Start 08/17/18 at 00:30 Acetaminophen (Tylenol Tab) 650 mg Q6H PRN PO .PAIN 1-3 OR TEMP; Start 08/17/18 at 00:30 Acetaminophen/ Hydrocodone Bitart ([place] (5/325)) 1 tab Q6H PRN PO .MOD PAIN 4- 6 Last administered on 08/17/18at 06:08; Admin Dose 1 TAB; Start 08/17/18 at 00:30 Vancomycin HCl (Vanco Iv Per Pharmacy) VANCOMYCIN PER PHARMACY PER PROTOCOL XX ; Start 08/17/18 at 00:30 Ampicillin Sodium/ Sulbactam Sodium 100 ml @ 100 mls/hr Q6 IVPB ; Start 08/17/18 at 12:00 Morphine Sulfate (morphine) 2 mg Q4H PRN IV SEVERE PAIN LEVEL 7-10; Start 08/17/18 at 11:00 JEFF ANTHONY NP Aug 17, 2018 10:58
--- NOTE | 2018-08-17 11:01 | CONS ---
Assessment/Plan Assessment/Plan Hospital Course (Demo Recall) 1) Mastitis doubt breast mass is a tumor given the rapid growth of it continue with vanco/unasyn this is large enough that IR drainage would be recommended agree with getting cx from R breast milk as well as from likely drainage fluid 2) hx of asthma no issues currently Consultation Date/Type/Reason Admit Date/Time Date of Consultation: Aug 17, 2018 Type of Consult ID Date/Time of Note DATE: 08/17/18 TIME: 10:56 Hx of Present Illness pt had a normal vaginal delivery about 34 days ago two weeks ago she started having some fevers and chills with R painful breast area she went to a clinic and was told to apply heat and take motrin but no antibiotics Things did not improved and she was admitted to the hospital via the ER no cough, SOB, V, D she feels achey all over she has a hx of breast nodules 3 years ago no sick contacts less breast milk has been coming out of R breast Past Medical History asthma Medical History: other (See HPI) Home Meds Reported Medications Vit No.124/Iron/FA ( Vitamin Tablet) 1 Each Tablet, 1 EACH PO DAILY, TAB 07/15/18 Medications Current Medications Ondansetron HCl (Zofran Inj) 4 mg BRIDGE ORDER PRN IV NAUSEA/VOMITING; Start 08/17/18 at 00:00; Stop 08/17/18 at 23:59 Acetaminophen (Tylenol Tab) 650 mg ER BRIDGE PRN PO .MILD PAIN 1-3 OR TEMP; Start 08/17/18 at 00:00; Stop 08/17/18 at 23:59 Sodium Chloride 1,000 ml @ 125 mls/hr Q8H IV Last administered on 08/17/18at 01:24; Admin Dose 125 MLS/HR; Start 08/17/18 at 00:02 IV Flush (NS 3 ml) 3 ml PER PROTOCOL IV ; Start 08/17/18 at 00:30 Ondansetron HCl (Zofran Inj) 4 mg Q6H PRN IV NAUSEA/VOMITING; Start 08/17/18 at 00:30 Acetaminophen (Tylenol Tab) 650 mg Q6H PRN PO .PAIN 1-3 OR TEMP; Start 08/17/18 at 00:30 Acetaminophen/ Hydrocodone Bitart ([place] (5/325)) 1 tab Q6H PRN PO .MOD PAIN 4- 6 Last administered on 08/17/18at 06:08; Admin Dose 1 TAB; Start 08/17/18 at 00:30 Vancomycin HCl (Vanco Iv Per Pharmacy) VANCOMYCIN PER PHARMACY PER PROTOCOL XX ; Start 08/17/18 at 00:30 Ampicillin Sodium/ Sulbactam Sodium 100 ml @ 100 mls/hr Q6 IVPB ; Start 08/17/18 at 12:00 Morphine Sulfate (morphine) 2 mg Q4H PRN IV SEVERE PAIN LEVEL 7-10; Start 08/17/18 at 11:00 Allergies: Coded Allergies: No Known Allergy (Verified , 03/21/10) Past Surgical History Past Surgical Hx: other (See HPI) Social History Alcohol Use: none Smoking Status: Never smoker Drug Use: none Exam/Review of Systems Exam Vitals Vital Signs Date Temp Pulse Resp B/P (MAP) Pulse Ox O2 O2 Flow FiO2 Time Delivery Rate 08/17/18 98.2 72 18 100/64 94 Room Air 07:58 (76) Intake and Output 08/16/18 08/16/18 08/17/18 1515:00 23:00 07:00 IntakeIntake Total 1700 ml 673.333 ml BalanceBalance 1700 ml 673.333 ml Constitutional: alert, oriented Eyes: nl sclera ENMT: mucosa pink and moist Respiratory: clear to auscultation Cardiovascular: regular rate and rhythm Gastrointestinal: soft, non-tender Skin: other (R breast lateral and inferior area of firmness with slight redness and pain and increase in heat) Results Result Diagram: 08/17/18 0452 08/17/18 0451 Results 24hrs Laboratory Tests Test 08/16/18 20:18 08/16/18 22:36 08/16/18 23:14 08/16/18 23:16 White Blood Count 14.4 #H Red Blood Count 4.16 L Hemoglobin 12.7 Hematocrit 38.2 Mean Corpuscular 91.8 Volume Mean Corpuscular 30.5 Hemoglobin Mean Corpuscular 33.2 Hemoglobin Concent Red Cell 12.7 Distribution Width Platelet Count 323 # Mean Platelet 8.9 Volume Immature 0.600 H Granulocytes % Neutrophils % 77.2 H Lymphocytes % 8.1 L Monocytes % 6.5 Eosinophils % 7.1 H Basophils % 0.5 Nucleated Red Blood 0.0 Cells % Immature 0.080 H Granulocytes # Neutrophils # 11.1 H Lymphocytes # 1.2 Monocytes # 0.9 Eosinophils # 1.0 H Basophils # 0.1 Nucleated Red Blood 0.0 Cells # Urine Color YELLOW Urine Clarity CLEAR Urine pH 5.0 Urine Specific 1.025 [place] Urine Ketones NEGATIVE Urine Nitrite NEGATIVE Urine Bilirubin NEGATIVE Urine Urobilinogen NEGATIVE Urine Leukocyte 1+ H Esterase Urine Microscopic 4 RBC Urine Microscopic 13 H WBC Urine Squamous FEW Epithelial Cells Urine Hemoglobin 1+ H Urine Glucose NEGATIVE Urine Total Protein NEGATIVE Sodium Level 141 Potassium Level 4.1 Chloride Level 107 Carbon Dioxide 26 Level Anion Gap 8 Blood Urea Nitrogen 12 Creatinine 0.93 Est Glomerular > 60 Filtrat Rate mL/min Glucose Level 116 Lactic Acid Level 1.3 0.7 Calcium Level 9.2 Total Bilirubin 0.2 Direct Bilirubin 0.00 Indirect Bilirubin 0.2 Aspartate Amino 22 Transf (AST/SGOT) Alanine 21 Aminotransferase (A LT/SGPT) Alkaline 112 Phosphatase Creatine Kinase 22 L Total Protein 7.2 Albumin 3.8 Globulin 3.40 H Albumin/Globulin 1.11 Ratio Bedside Urine pH 5.5 (LAB) Bedside Urine Negative Protein (LAB) Bedside Urine Negative Glucose (UA) Bedside Urine Negative Ketones (LAB) Bedside Urine Blood Trace-lysed H Bedside Urine Negative Nitrite (LAB) Bedside Urine Trace H Leukocyte Esterase (L POC Beta HCG, NEGATIVE Qualitative Test 08/17/18 01:06 08/17/18 04:51 08/17/18 04:52 Lactic Acid Level 0.7 Sodium Level 140 Potassium Level 4.0 Chloride Level 109 Carbon Dioxide 24 Level Anion Gap 7 Blood Urea Nitrogen 12 Creatinine 0.57 Est Glomerular > 60 Filtrat Rate mL/min Glucose Level 97 Calcium Level 8.2 L Phosphorus Level 3.2 Magnesium Level 1.8 Total Bilirubin 0.2 Direct Bilirubin 0.00 Indirect Bilirubin 0.2 Aspartate Amino 19 Transf (AST/SGOT) Alanine 25 Aminotransferase (A LT/SGPT) Alkaline 97 Phosphatase Total Protein 6.1 # Albumin 3.1 L Globulin 3.00 Albumin/Globulin 1.03 Ratio White Blood Count 12.9 H Red Blood Count 3.86 L Hemoglobin 11.8 L Hematocrit 35.4 L Mean Corpuscular 91.7 Volume Mean Corpuscular 30.6 Hemoglobin Mean Corpuscular 33.3 Hemoglobin Concent Red Cell 12.8 Distribution Width Platelet Count 264 Mean Platelet 9.0 Volume Immature 0.500 H Granulocytes % Neutrophils % 76.2 Lymphocytes % 9.3 L Monocytes % 7.2 Eosinophils % 6.5 Basophils % 0.3 Nucleated Red Blood 0.0 Cells % Immature 0.060 H Granulocytes # Neutrophils # 9.8 H Lymphocytes # 1.2 Monocytes # 0.9 Eosinophils # 0.8 H Basophils # 0.0 Nucleated Red Blood 0.0 Cells # Medications Medication Current Medications Ondansetron HCl (Zofran Inj) 4 mg BRIDGE ORDER PRN IV NAUSEA/VOMITING; Start 08/17/18 at 00:00; Stop 08/17/18 at 23:59 Acetaminophen (Tylenol Tab) 650 mg ER BRIDGE PRN PO .MILD PAIN 1-3 OR TEMP; Start 08/17/18 at 00:00; Stop 08/17/18 at 23:59 Sodium Chloride 1,000 ml @ 125 mls/hr Q8H IV Last administered on 08/17/18at 01:24; Admin Dose 125 MLS/HR; Start 08/17/18 at 00:02 IV Flush (NS 3 ml) 3 ml PER PROTOCOL IV ; Start 08/17/18 at 00:30 Ondansetron HCl (Zofran Inj) 4 mg Q6H PRN IV NAUSEA/VOMITING; Start 08/17/18 at 00:30 Acetaminophen (Tylenol Tab) 650 mg Q6H PRN PO .PAIN 1-3 OR TEMP; Start 08/17/18 at 00:30 Acetaminophen/ Hydrocodone Bitart ([place] (5/325)) 1 tab Q6H PRN PO .MOD PAIN 4- 6 Last administered on 08/17/18at 06:08; Admin Dose 1 TAB; Start 08/17/18 at 00:30 Vancomycin HCl (Vanco Iv Per Pharmacy) VANCOMYCIN PER PHARMACY PER PROTOCOL XX ; Start 08/17/18 at 00:30 Ampicillin Sodium/ Sulbactam Sodium 100 ml @ 100 mls/hr Q6 IVPB ; Start 08/17/18 at 12:00 Morphine Sulfate (morphine) 2 mg Q4H PRN IV SEVERE PAIN LEVEL 7-10; Start 08/17/18 at 11:00 MEGAN LAURA MD Aug 17, 2018 11:01
[2018-08-17] MEDS: AMPICILLIN/SULB 3 GM/NS (PMX) 100 ML IVPB SCH ×2 (11:19→18:29)
[2018-08-17] MEDS ORDERED: LIDOCAINE 1% (MPF) 5 ML VIAL ONE (11:54)
[2018-08-17] MEDS: morphine 2 MG INJ IV PRN ×2 (13:46→18:28)
[2018-08-17] MEDS: VANCOMYCIN 500 MG (PMX) 100 ML IVPB SCH ×2 (13:54→21:27)
[2018-08-17] MEDS ORDERED: VANCOMYCIN 500 MG (PMX) 100 ML IVPB SCH (19:00)
[2018-08-17] MEDS ORDERED: CEFTRIAXONE 1 GM/50 ML (PMX) 50 ML IVPB SCH (23:00)
[2018-08-18] MEDS: SOD CHLORIDE 0.9% 1,000 ML IV SCH ×3 (00:02→17:41)
[2018-08-18] MEDS: morphine 2 MG INJ IV PRN (01:10)
[2018-08-18] MEDS: AMPICILLIN/SULB 3 GM/NS (PMX) 100 ML IVPB SCH ×5 (01:10→19:10)
[2018-08-18 01:44] VITALS: BP 112/67; PULSE 72; RESP 18
[2018-08-18] MEDS ORDERED: KETOROLAC 30 MG INJ IV STA (03:48)
--- NOTE | 2018-08-18 03:50 | EN ---
Date/Time of Note Date/Time of Note DATE: 08/18/18 TIME: 03:44 Event Note Medicine Medicine Event Note Event note Was called by nurse to assess the patient as she was reporting that she was unable to move her bilateral arms and legs Patient seen and examined at the bedside. Patient having difficulty moving her bilateral upper and lower extremity secondary to pain. 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 Patient reports that most of her pain was on her left side of the upper and lower extremities. She does have tenderness to palpation along the cervical spine as well as the paraspinal muscles. Patient also reports pain of the lumbar spine. Of note patient did have a epidural when she delivered her child approximately 1 month ago. General: Patient currently lying in bed in no acute distress CVS: Regular rhythm Lungs: Clear to auscultation bilaterally Neurological: Bilateral upper and lower extremity weakness on exam , sensation intact, no cranial nerve deficits. Musculoskeletal: Tenderness to palpation along the cervical spine as well as paraspinal muscles of the upper back as well as lower back. Assessment and plan: #1 bilateral weakness: Concern for possible muscle spasm versus spinal pathology versus other. Given that the symptoms occurred acutely as well as that she has a breast mass there is concern for possible spinal involvement. I will obtain a CT of the brain as well as the cervical thoracic and CT abdomen pelvis to evaluate the lumbar spine. She does have tenderness over upper neck as well as her lower back I will give her a dose of Toradol 30 mg IV x1. She is currently afebrile. Greater than 35 minutes of critical care time was spent on the care and managem ent this patient. RAJI CALLAWAY Aug 18, 2018 03:50
[2018-08-18] MEDS ORDERED: SOD CHLORIDE 0.9% 100 ML ONE (05:21)
[2018-08-18] MEDS ORDERED: IOHEXOL 300MG/ML 150 ML BTL ONE (05:21)
[2018-08-18] MEDS: VANCOMYCIN 500 MG (PMX) 100 ML IVPB SCH ×3 (05:32→06:32)
--- NOTE | 2018-08-18 06:44 | CONS ---
Assessment/Plan Assessment/Plan Hospital Course (Demo Recall) 1) Mastitis with abscess doubt breast mass is a tumor given the rapid growth of it continue with vanco/unasyn this is large enough that IR drainage would be recommended agree with getting cx from R breast milk as well as from likely drainage fluid 08/18 - wound cx from aspiration of breast abscess has probable GPC growing continue with vanco/unasyn at present till ID is known WBC and fevers are improved 2) hx of asthma no issues currently Consultation Date/Type/Reason Admit Date/Time Aug 16, 2018 at 23:56 Initial Consult Date 08/17/18 Type of Consult ID Date/Time of Note DATE: 08/18/18 TIME: 06:42 24 HR Interval Summary Free Text/Dictation pt still has pain to breast area abscess was aspirated yesterday but no drain left in place no N, V, D fevers are improved no SOB, cough Exam/Review of Systems Exam Vitals Vital Signs Date Temp Pulse Resp B/P (MAP) Pulse Ox O2 O2 Flow FiO2 Time Delivery Rate 08/18/18 98.8 72 18 112/67 100 Room Air 01:44 (82) Intake and Output 08/17/18 08/17/18 08/18/18 1515:00 23:00 07:00 IntakeIntake Total 400 ml 660 ml 240 ml OutputOutput Total 15 ml 1000 ml BalanceBalance 385 ml -340 ml 240 ml Constitutional: alert, oriented Respiratory: clear to auscultation Cardiovascular: regular rate and rhythm Gastrointestinal: soft, non-tender Skin: other (breast R lower lateral area is less warm and less red) Results Result Diagram: 08/18/180 08/18/18 0440 Results 24hrs Laboratory Tests Test 08/18/18 04:40 White Blood Count 11.7 H Red Blood Count 3.68 L Hemoglobin 11.2 L Hematocrit 33.8 L Mean Corpuscular Volume 91.8 Mean Corpuscular Hemoglobin 30.4 Mean Corpuscular Hemoglobin Concent 33.1 Red Cell Distribution Width 12.8 Platelet Count 260 Mean Platelet Volume 8.8 Immature Granulocytes % 0.300 Neutrophils % 73.0 Lymphocytes % 13.5 L Monocytes % 7.6 Eosinophils % 5.3 Basophils % 0.3 Nucleated Red Blood Cells % 0.0 Immature Granulocytes # 0.040 H Neutrophils # 8.6 H Lymphocytes # 1.6 Monocytes # 0.9 Eosinophils # 0.6 H Basophils # 0.0 Nucleated Red Blood Cells # 0.0 Sodium Level 138 Potassium Level 3.7 Chloride Level 104 Carbon Dioxide Level 25 Anion Gap 9 Blood Urea Nitrogen 6 L Creatinine 0.44 Est Glomerular Filtrat Rate mL/min > 60 Glucose Level 95 Calcium Level 8.5 Phosphorus Level 3.8 Magnesium Level 1.9 C-Reactive Protein 14.8 H Vancomycin Level Trough 5.7 L Medications Medication Current Medications Sodium Chloride 1,000 ml @ 125 mls/hr Q8H IV Last administered on 08/18/18 04:15; Admin Dose 125 MLS/HR; Start 08/17/18 at 00:02 IV Flush (NS 3 ml) 3 ml PER PROTOCOL IV ; Start 08/17/18 at 00:30 Ondansetron HCl (Zofran Inj) 4 mg Q6H PRN IV NAUSEA/VOMITING; Start 08/17/18 at 00:30 Acetaminophen (Tylenol Tab) 650 mg Q6H PRN PO .PAIN 1-3 OR TEMP; Start 08/17/18 at 00:30 Acetaminophen/ Hydrocodone Bitart ([place] (5/325)) 1 tab Q6H PRN PO .MOD PAIN 4- 6 Last administered on 08/17/18at 15:58; Admin Dose 1 TAB; Start 08/17/18 at 00:30 Vancomycin HCl (Vanco Iv Per Pharmacy) VANCOMYCIN PER PHARMACY PER PROTOCOL XX ; Start 08/17/18 at 00:30 Ampicillin Sodium/ Sulbactam Sodium 100 ml @ 100 mls/hr Q6 IVPB Last administered on 08/18/18at 01:10; Admin Dose 100 MLS/HR; Start 08/17/18 at 12:00 Morphine Sulfate (morphine) 2 mg Q4H PRN IV SEVERE PAIN LEVEL 7-10 Last administered on 08/18/18 01:10; Admin Dose 2 MG; Start 08/17/18 at 11:00 Vancomycin HCl 100 ml @ 100 mls/hr Q8H IVPB Last administered on 08/18/18 06:32; Admin Dose 100 MLS/HR; Start 08/17/18 at 14:00 MEGAN LAURA MD Aug 18, 2018 06:44
[2018-08-18 08:10] VITALS: BP 96/58; PULSE 73; RESP 18
[2018-08-18] MEDS ORDERED: VANCOMYCIN 1 GM 250 ML IVPB SCH (11:00)
--- NOTE | 2018-08-18 11:21 | PN ---
Date/Time of Note Date/Time of Note DATE: 08/18/18 TIME: 11:16 Assessment/Plan VTE Prophylaxis Risk score (from Nsg)>0 risk: 3 SCD applied (from Nsg): Yes Pharmacological prophylaxis: LMWH Lines/Catheters IV Catheter Type (from [facility]): Peripheral IV Assessment/Plan Hospital Course SUBJECTIVE: Continues to complain of generalized body aches. OBJECTIVE: Physical Exam General: Adequately build 33 year-old female lying in bed in no apparent distress. HEENT: Normocephalic, atraumatic. Eyes: Anicteric sclerae, conjunctivae clear. ENT: Nasal septum midline, oral mucosa moist. Neck supple, no JVD noticed. Respiratory: Bilaterally diminished breath sounds. No use of accessory muscles of respiration. No adventitious breath sounds. Cardiovascular: S1, S2 heard. Regular rate and rhythm. Abdomen: Soft, nontender, and nondistended. Bowel sounds positive in all 4 quadrants. Genitourinary: Deferred. Extremities: No cyanosis, no clubbing. RUE edema. Peripheral pulses palpable. Decreased range of motion of right and left shoulder joints. Neurologic: Cranial nerves II through XII grossly intact. The patient is awake, alert, and oriented. Breasts (examined in the presence of a female production machine shop supervisor): Right breast edema and tenderness. Palpable mass on the right breast at the 9 o'clock position. Left breast within normal limits. Labs & Vitals per chart ASSESSMENT & PLAN This is a 33-year-old female who had a normal vaginal delivery on 07/15/2018. The patient has a prior history of fibroma of the right breast approximately 3 years ago status post surgical removal. The patient came to the emergency room with chief complaint of fevers, chills, generalized body aches, and right breast pain that has been going on for the past 2 weeks. The patient had underlying leukocytosis, febrile illness (101.6), and tachycardia, present on admission. The patient was admitted inpatient setting for further treatment and evaluation. 1. Sepsis with leukocytosis, tachycardia, and febrile illness, present on admission. -Most probably secondary to underlying right-sided mastitis and underlying abscess. -Continue antimicrobials including coverage for anaerobes and MRSA. -ID following. 2. Lactational mastitis with underlying abscess. -Continue Unasyn with vancomycin. -Status post ultrasound-guided drainage of 15 ml of pus on 08/17/2018. 3. Palpable 4 x 2.7 x 4.3 cm heterogeneous echotexture largely hypoechoic solid appearing mass of the right breast. -Status post ultrasound-guided drainage of 15 ml of pus on 08/17/2018. -Surgical consult obtained on 08/17/2018. 4. Breast feeding status. - Pump and dump. 5. Asthma. -Stable. -No evidence of any exacerbation. 6. Fluids, electrolytes, and nutrition. -Regular diet. 7. DVT prophylaxis. -Bilateral SCDs. -SQ Lovenox. 8. Plan. -Continue pain control. -Continue empiric antimicrobials. -Await surgical consult and final culture results. Plan of care was explained to the patient's spouse, who was at the bedside. The patient was seen in collaboration with Dr. Mendoza. Result Diagram: 08/18/180 08/18/18 0440 Results 24hrs Laboratory Tests Test 08/18/18 04:39 08/18/18 04:40 Erythrocyte Sedimentation Rate 56 H White Blood Count 11.7 H Red Blood Count 3.68 L Hemoglobin 11.2 L Hematocrit 33.8 L Mean Corpuscular Volume 91.8 Mean Corpuscular Hemoglobin 30.4 Mean Corpuscular Hemoglobin Concent 33.1 Red Cell Distribution Width 12.8 Platelet Count 260 Mean Platelet Volume 8.8 Immature Granulocytes % 0.300 Neutrophils % 73.0 Lymphocytes % 13.5 L Monocytes % 7.6 Eosinophils % 5.3 Basophils % 0.3 Nucleated Red Blood Cells % 0.0 Immature Granulocytes # 0.040 H Neutrophils # 8.6 H Lymphocytes # 1.6 Monocytes # 0.9 Eosinophils # 0.6 H Basophils # 0.0 Nucleated Red Blood Cells # 0.0 Sodium Level 138 Potassium Level 3.7 Chloride Level 104 Carbon Dioxide Level 25 Anion Gap 9 Blood Urea Nitrogen 6 L Creatinine 0.44 Est Glomerular Filtrat Rate mL/min > 60 Glucose Level 95 Calcium Level 8.5 Phosphorus Level 3.8 Magnesium Level 1.9 C-Reactive Protein 14.8 H Vancomycin Level Trough 5.7 L Exam/Review of Systems Exam Vitals Vital Signs Date Temp Pulse Resp B/P (MAP) Pulse Ox O2 O2 Flow FiO2 Time Delivery Rate 08/18/18 97.8 73 18 96/58 (71) 94 Room Air 08:10 Intake and Output 08/17/18 08/17/18 08/18/18 1515:00 23:00 07:00 IntakeIntake Total 400 ml 660 ml 1440 ml OutputOutput Total 15 ml 1000 ml BalanceBalance 385 ml -340 ml 1440 ml Results Results 24hrs Laboratory Tests Test 08/18/18 04:39 08/18/18 04:40 Erythrocyte Sedimentation Rate 56 H White Blood Count 11.7 H Red Blood Count 3.68 L Hemoglobin 11.2 L Hematocrit 33.8 L Mean Corpuscular Volume 91.8 Mean Corpuscular Hemoglobin 30.4 Mean Corpuscular Hemoglobin Concent 33.1 Red Cell Distribution Width 12.8 Platelet Count 260 Mean Platelet Volume 8.8 Immature Granulocytes % 0.300 Neutrophils % 73.0 Lymphocytes % 13.5 L Monocytes % 7.6 Eosinophils % 5.3 Basophils % 0.3 Nucleated Red Blood Cells % 0.0 Immature Granulocytes # 0.040 H Neutrophils # 8.6 H Lymphocytes # 1.6 Monocytes # 0.9 Eosinophils # 0.6 H Basophils # 0.0 Nucleated Red Blood Cells # 0.0 Sodium Level 138 Potassium Level 3.7 Chloride Level 104 Carbon Dioxide Level 25 Anion Gap 9 Blood Urea Nitrogen 6 L Creatinine 0.44 Est Glomerular Filtrat Rate mL/min > 60 Glucose Level 95 Calcium Level 8.5 Phosphorus Level 3.8 Magnesium Level 1.9 C-Reactive Protein 14.8 H Vancomycin Level Trough 5.7 L Medications Medication Current Medications Sodium Chloride 1,000 ml @ 125 mls/hr Q8H IV Last administered on 08/18/18at 04:15; Admin Dose 125 MLS/HR; Start 08/17/18 at 00:02 IV Flush (NS 3 ml) 3 ml PER PROTOCOL IV ; Start 08/17/18 at 00:30 Ondansetron HCl (Zofran Inj) 4 mg Q6H PRN IV NAUSEA/VOMITING; Start 08/17/18 at 00:30 Acetaminophen (Tylenol Tab) 650 mg Q6H PRN PO .PAIN 1-3 OR TEMP; Start 08/17/18 at 00:30 Acetaminophen/ Hydrocodone Bitart ([place] (5/325)) 1 tab Q6H PRN PO .MOD PAIN 4- 6 Last administered on 08/17/18at 15:58; Admin Dose 1 TAB; Start 08/17/18 at 00:30 Vancomycin HCl (Vanco Iv Per Pharmacy) VANCOMYCIN PER PHARMACY PER PROTOCOL XX ; Start 08/17/18 at 00:30 Ampicillin Sodium/ Sulbactam Sodium 100 ml @ 100 mls/hr Q6 IVPB Last administered on 08/18/18at 07:39; Admin Dose 100 MLS/HR; Start 08/17/18 at 12:00 Morphine Sulfate (morphine) 2 mg Q4H PRN IV SEVERE PAIN LEVEL 7-10 Last administered on 08/18/18at 01:10; Admin Dose 2 MG; Start 08/17/18 at 11:00 Vancomycin HCl 250 ml @ 125 mls/hr Q8H IVPB ; Start 08/18/18 at 12:00 Miscellaneous Information (*Rx Drug Level Order Reminder*) VANCO TR 08/19 AT 1100 ONCE ONCE XX ; Start 08/19/18 at 11:00; Stop 08/19/18 at 11:01 JEFF ANTHONY NP Aug 18, 2018 11:21
[2018-08-18] MEDS: ENOXAPARIN 40 MG/0.4 ML SYG SC SCH (13:46)
[2018-08-18 14:19] VITALS: BP 99/66; PULSE 86; RESP 18
[2018-08-18] MEDS: VANCOMYCIN 1 GM 250 ML IVPB SCH ×2 (14:47→21:03)
[2018-08-18 20:38] VITALS: BP 98/70; PULSE 83; RESP 18
[2018-08-19] MEDS: AMPICILLIN/SULB 3 GM/NS (PMX) 100 ML IVPB SCH ×2 (00:01→06:03)
[2018-08-19] MEDS: HYDROCODONE/APAP (5/325) TAB PO PRN (00:01)
[2018-08-19] MEDS: SOD CHLORIDE 0.9% 1,000 ML IV SCH ×2 (00:02→09:49)
[2018-08-19 02:18] VITALS: BP 101/71; PULSE 68; RESP 18
[2018-08-19] MEDS: VANCOMYCIN 1 GM 250 ML IVPB SCH (04:40)
--- NOTE | 2018-08-19 07:28 | CONS ---
Assessment/Plan Assessment/Plan Hospital Course (Demo Recall) 1) Mastitis with abscess doubt breast mass is a tumor given the rapid growth of it continue with vanco/unasyn this is large enough that IR drainage would be recommended agree with getting cx from R breast milk as well as from likely drainage fluid 4/2 - wound cx from aspiration of breast abscess has probable GPC growing continue with vanco/unasyn at present till ID is known WBC and fevers are improved 4/3 - s.aureus from breast abscess aspiration d/c vanco/unasyn and start augmentin/bactrim (both compatible with breast feeding) sensitivities to s.aureus will be ready tomorrow and if MSSA will d/c bactrim then 2) hx of asthma no issues currently 3) diffuse weakness but LUE> then rest 4/3 - neg CT's of cervical, thoracic and brain weakness is improved Consultation Date/Type/Reason Admit Date/Time Aug 16, 2018 at 23:56 Initial Consult Date 08/17/18 Type of Consult ID Date/Time of Note DATE: 08/19/18 TIME: 07:22 24 HR Interval Summary Free Text/Dictation pt developed weakness on LUE that progressed to weakness to both sides and to legs she had CT's of brain,cervical and thoracic area which did not elucidate a cause this a.m. her strength is returning, she is walking better and able to raise bot h arms no N, V, D the pain to R breast and side is better Exam/Review of Systems Exam Vitals Vital Signs Date Temp Pulse Resp B/P (MAP) Pulse Ox O2 O2 Flow FiO2 Time Delivery Rate 08/19/18 98.3 68 18 101/71 97 02:18 (81) 08/18/18 Room Air 14:19 Intake and Output 08/18/18 08/18/18 08/19/18 1515:00 23:00 07:00 IntakeIntake Total 760 ml 2570 ml 470 ml OutputOutput Total 2220 ml BalanceBalance 760 ml 350 ml 470 ml Constitutional: alert, oriented Eyes: nl sclera ENMT: mucosa pink and moist Respiratory: clear to auscultation Cardiovascular: regular rate and rhythm Gastrointestinal: soft, non-tender Neurological: other (able to move all extremities, less swelling to RUE) Results Result Diagram: 4/3/19 0442 4/3/19 0442 Results 24hrs Laboratory Tests Test 08/19/18 04:42 White Blood Count 7.5 # Red Blood Count 3.52 L Hemoglobin 10.7 L Hematocrit 32.3 L Mean Corpuscular Volume 91.8 Mean Corpuscular Hemoglobin 30.4 Mean Corpuscular Hemoglobin Concent 33.1 Red Cell Distribution Width 12.4 Platelet Count 255 Mean Platelet Volume 8.6 Immature Granulocytes % 0.500 H Neutrophils % 54.3 Lymphocytes % 25.3 Monocytes % 9.0 Eosinophils % 10.2 H Basophils % 0.7 Nucleated Red Blood Cells % 0.0 Immature Granulocytes # 0.040 H Neutrophils # 4.1 Lymphocytes # 1.9 Monocytes # 0.7 Eosinophils # 0.8 H Basophils # 0.1 Nucleated Red Blood Cells # 0.0 Sodium Level 140 Potassium Level 4.1 Chloride Level 109 Carbon Dioxide Level 25 Anion Gap 6 Blood Urea Nitrogen 9 Creatinine 0.51 Est Glomerular Filtrat Rate mL/min > 60 Glucose Level 92 Calcium Level 8.4 Phosphorus Level 3.8 Magnesium Level 2.0 Medications Medication Current Medications Sodium Chloride 1,000 ml @ 125 mls/hr Q8H IV Last administered on 08/18/18at 17:41; Admin Dose 125 MLS/HR; Start 08/17/18 at 00:02 IV Flush (NS 3 ml) 3 ml PER PROTOCOL IV ; Start 08/17/18 at 00:30 Ondansetron HCl (Zofran Inj) 4 mg Q6H PRN IV NAUSEA/VOMITING; Start 08/17/18 at 00:30 Acetaminophen (Tylenol Tab) 650 mg Q6H PRN PO .PAIN 1-3 OR TEMP; Start 08/17/18 at 00:30 Acetaminophen/ Hydrocodone Bitart ([place] (5/325)) 1 tab Q6H PRN PO .MOD PAIN 4- 6 Last administered on 08/19/18at 00:01; Admin Dose 1 TAB; Start 08/17/18 at 00:30 Vancomycin HCl (Vanco Iv Per Pharmacy) VANCOMYCIN PER PHARMACY PER PROTOCOL XX ; Start 08/17/18 at 00:30 Ampicillin Sodium/ Sulbactam Sodium 100 ml @ 100 mls/hr Q6 IVPB Last administered on 08/19/18at 06:03; Admin Dose 100 MLS/HR; Start 08/17/18 at 12:00 Morphine Sulfate (morphine) 2 mg Q4H PRN IV SEVERE PAIN LEVEL 7-10 Last administered on 08/18/18at 01:10; Admin Dose 2 MG; Start 08/17/18 at 11:00 Vancomycin HCl 250 ml @ 125 mls/hr Q8H IVPB Last administered on 08/19/18at 04:40; Admin Dose 125 MLS/HR; Start 08/18/18 at 12:00 Miscellaneous Information (*Rx Drug Level Order Reminder*) VANCO TR 08/19 AT 1100 1100 ONCE XX ; Start 08/19/18 at 11:00; Stop 08/19/18 at 11:01 Enoxaparin Sodium (Lovenox) 40 mg DAILY SC Last administered on 08/18/18at 13:46; Admin Dose 40 MG; Start 08/18/18 at 11:30 MEGAN LAURA MD Aug 19, 2018 07:28
[2018-08-19 08:03] VITALS: BP 109/69; PULSE 51; RESP 18
[2018-08-19] MEDS: TRIMETHOPRIM/SULFAMETHOX (DS) TAB PO SCH ×2 (08:43→21:33)
[2018-08-19] MEDS: AMOXICILLIN/CLAV 875 MG TAB PO SCH ×2 (08:43→21:33)
[2018-08-19] MEDS: ENOXAPARIN 40 MG/0.4 ML SYG SC SCH (08:46)
--- NOTE | 2018-08-19 09:08 | PN ---
Date/Time of Note Date/Time of Note DATE: 08/19/18 TIME: 09:07 Assessment/Plan VTE Prophylaxis Risk score (from Nsg)>0 risk: 1 SCD applied (from Nsg): Yes Pharmacological prophylaxis: LMWH Lines/Catheters IV Catheter Type (from Nrsg): Peripheral IV Assessment/Plan Hospital Course SUBJECTIVE: Generalized body aches better. Generalized weakness better. OBJECTIVE: Physical Exam General: Adequately build 33 year-old female lying in bed in no apparent distress. HEENT: Normocephalic, atraumatic. Eyes: Anicteric sclerae, conjunctivae clear. ENT: Nasal septum midline, oral mucosa moist. Neck supple, no JVD noticed. Respiratory: Bilaterally diminished breath sounds. No use of accessory muscles of respiration. No adventitious breath sounds. Cardiovascular: S1, S2 heard. Regular rate and rhythm. Abdomen: Soft, nontender, and nondistended. Bowel sounds positive in all 4 quadrants. Genitourinary: Deferred. Extremities: No cyanosis, no clubbing. RUE edema. Peripheral pulses palpable. Decreased range of motion of right and left shoulder joints. Neurologic: Cranial nerves II through XII grossly intact. The patient is awake, alert, and oriented. Breasts (examined in the presence of a female picker machine operator): Right breast edema and tenderness. Palpable mass on the right breast at the 9 o'clock position. Labs & Vitals per chart ASSESSMENT & PLAN This is a 33-year-old female who had a normal vaginal delivery on 07/15/2018. The patient has a prior history of fibroma of the right breast approximately 3 years ago status post surgical removal. The patient came to the emergency room with chief complaint of fevers, chills, generalized body aches, and right breast pain that has been going on for the past 2 weeks. The patient had underlying leukocytosis, febrile illness (101.6), and tachycardia, present on admission. The patient was admitted inpatient setting for further treatment and evaluation. 1. Sepsis with leukocytosis, tachycardia, and febrile illness, present on admission. -Most probably secondary to underlying right-sided mastitis and underlying abscess. -Continue antimicrobials including coverage for anaerobes and MRSA. -ID following. 2. Lactational mastitis with underlying abscess. -Continue ABX as per ID. -Status post ultrasound-guided drainage of 15 ml of pus on 08/17/2018. -Culture growing Staph aureus. 3. Palpable 4 x 2.7 x 4.3 cm heterogeneous echotexture largely hypoechoic solid appearing mass of the right breast. -Status post ultrasound-guided drainage of 15 ml of pus on 08/17/2018. -Surgical consult obtained on 08/17/2018. 4. Breast feeding status. -Pump and dump. -Patient decided to stop pumping/. 5. Asthma. -Stable. -No evidence of any exacerbation. 6. Fluids, electrolytes, and nutrition. -Regular diet. 7. DVT prophylaxis. -Bilateral SCDs. -SQ Lovenox. 8. Plan. -Continue pain control. -Continue empiric antimicrobials. -Await final culture results. The patient was seen in collaboration with Dr. Mendoza. Result Diagram: 08/19/1844108/19/18441 Results 24hrs Laboratory Tests Test 08/19/18 04:42 White Blood Count 7.5 # Red Blood Count 3.52 L Hemoglobin 10.7 L Hematocrit 32.3 L Mean Corpuscular Volume 91.8 Mean Corpuscular Hemoglobin 30.4 Mean Corpuscular Hemoglobin Concent 33.1 Red Cell Distribution Width 12.4 Platelet Count 255 Mean Platelet Volume 8.6 Immature Granulocytes % 0.500 H Neutrophils % 54.3 Lymphocytes % 25.3 Monocytes % 9.0 Eosinophils % 10.2 H Basophils % 0.7 Nucleated Red Blood Cells % 0.0 Immature Granulocytes # 0.040 H Neutrophils # 4.1 Lymphocytes # 1.9 Monocytes # 0.7 Eosinophils # 0.8 H Basophils # 0.1 Nucleated Red Blood Cells # 0.0 Sodium Level 140 Potassium Level 4.1 Chloride Level 109 Carbon Dioxide Level 25 Anion Gap 6 Blood Urea Nitrogen 9 Creatinine 0.51 Est Glomerular Filtrat Rate mL/min > 60 Glucose Level 92 Calcium Level 8.4 Phosphorus Level 3.8 Magnesium Level 2.0 Exam/Review of Systems Exam Vitals Vital Signs Date Temp Pulse Resp B/P (MAP) Pulse Ox O2 O2 Flow FiO2 Time Delivery Rate 08/19/18 97.6 51 18 109/69 99 08:03 (82) 08/18/18 Room Air 14:19 Intake and Output 08/18/18 08/18/18 08/19/18 1515:00 23:00 07:00 IntakeIntake Total 760 ml 2570 ml 470 ml OutputOutput Total 2220 ml BalanceBalance 760 ml 350 ml 470 ml Results Results 24hrs Laboratory Tests Test 08/19/18 04:42 White Blood Count 7.5 # Red Blood Count 3.52 L Hemoglobin 10.7 L Hematocrit 32.3 L Mean Corpuscular Volume 91.8 Mean Corpuscular Hemoglobin 30.4 Mean Corpuscular Hemoglobin Concent 33.1 Red Cell Distribution Width 12.4 Platelet Count 255 Mean Platelet Volume 8.6 Immature Granulocytes % 0.500 H Neutrophils % 54.3 Lymphocytes % 25.3 Monocytes % 9.0 Eosinophils % 10.2 H Basophils % 0.7 Nucleated Red Blood Cells % 0.0 Immature Granulocytes # 0.040 H Neutrophils # 4.1 Lymphocytes # 1.9 Monocytes # 0.7 Eosinophils # 0.8 H Basophils # 0.1 Nucleated Red Blood Cells # 0.0 Sodium Level 140 Potassium Level 4.1 Chloride Level 109 Carbon Dioxide Level 25 Anion Gap 6 Blood Urea Nitrogen 9 Creatinine 0.51 Est Glomerular Filtrat Rate mL/min > 60 Glucose Level 92 Calcium Level 8.4 Phosphorus Level 3.8 Magnesium Level 2.0 Medications Medication Current Medications Sodium Chloride 1,000 ml @ 125 mls/hr Q8H IV Last administered on 08/18/18at 17:41; Admin Dose 125 MLS/HR; Start 08/17/18 at 00:02 IV Flush (NS 3 ml) 3 ml PER PROTOCOL IV ; Start 08/17/18 at 00:30 Ondansetron HCl (Zofran Inj) 4 mg Q6H PRN IV NAUSEA/VOMITING; Start 08/17/18 at 00:30 Acetaminophen (Tylenol Tab) 650 mg Q6H PRN PO .PAIN 1-3 OR TEMP; Start 08/17/18 at 00:30 Acetaminophen/ Hydrocodone Bitart ([place] (5/325)) 1 tab Q6H PRN PO .MOD PAIN 4- 6 Last administered on 08/19/18at 00:01; Admin Dose 1 TAB; Start 08/17/18 at 00:30 Morphine Sulfate (morphine) 2 mg Q4H PRN IV SEVERE PAIN LEVEL 7-10 Last administered on 08/18/18at 01:10; Admin Dose 2 MG; Start 08/17/18 at 11:00 Enoxaparin Sodium (Lovenox) 40 mg DAILY SC Last administered on 08/19/18at 08:46; Admin Dose 40 MG; Start 08/18/18 at 11:30 Amoxicillin/ Clavulanate Potassium (Augmentin) 875 mg BID PO Last administered on 08/19/18 08:43; Admin Dose 875 MG; Start 08/19/18 at 09:00 Trimethoprim/ Sulfamethoxazole (Bactrim (Ds)) 1 tab BID PO Last administered on 08/19/18 08:43; Admin Dose 1 TAB; Start 08/19/18 at 09:00 JEFF ANTHONY NP Aug 19, 2018 09:08
[2018-08-19 14:44] VITALS: BP 118/73; PULSE 64; RESP 18
[2018-08-19 20:30] VITALS: BP 115/71; PULSE 69; RESP 18
[2018-08-19 21:36] VITALS: BP 113/74; RESP 15
[2018-08-20 02:06] VITALS: BP 103/66; PULSE 66; RESP 18
--- NOTE | 2018-08-20 06:56 | CONS ---
Assessment/Plan Assessment/Plan Hospital Course (Demo Recall) 1) Mastitis with abscess doubt breast mass is a tumor given the rapid growth of it continue with vanco/unasyn this is large enough that IR drainage would be recommended agree with getting cx from R breast milk as well as from likely drainage fluid 08/18 - wound cx from aspiration of breast abscess has probable GPC growing continue with vanco/unasyn at present till ID is known WBC and fevers are improved 08/19 - s.aureus from breast abscess aspiration d/c vanco/unasyn and start augmentin/bactrim (both compatible with breast feeding) sensitivities to s.aureus will be ready tomorrow and if MSSA will d/c bactrim then 08/20 - MSSA in breast abscess cx d/c bactrim and continue with augmentin thru 08/29 2) hx of asthma no issues currently 3) diffuse weakness but LUE> then rest 08/19 - neg CT's of cervical, thoracic and brain weakness is improved Consultation Date/Type/Reason Admit Date/Time Aug 16, 2018 at 23:56 Initial Consult Date 08/17/18 Type of Consult ID Date/Time of Note DATE: 08/20/18 TIME: 06:53 24 HR Interval Summary Free Text/Dictation pt denies pain to R breast No N, V pt had one loose stool no abd pain Exam/Review of Systems Exam Vitals Vital Signs Date Temp Pulse Resp B/P (MAP) Pulse Ox O2 O2 Flow FiO2 Time Delivery Rate 08/20/18 97.2 66 18 103/66 98 02:06 (78) 08/19/18 Room Air 21:36 Intake and Output 08/19/18 08/19/18 08/20/18 1515:00 23:00 07:00 IntakeIntake Total 340 ml 440 ml OutputOutput Total 1 ml BalanceBalance 339 ml 440 ml Constitutional: alert, oriented Skin: other (R breast area of firmness is smaller but less hard) Results Result Diagram: 08/20/18 0443 08/20/18 0443 Results 24hrs Laboratory Tests Test 08/20/18 04:43 White Blood Count 8.7 Red Blood Count 4.08 L Hemoglobin 12.3 Hematocrit 37.2 Mean Corpuscular Volume 91.2 Mean Corpuscular Hemoglobin 30.1 Mean Corpuscular Hemoglobin Concent 33.1 Red Cell Distribution Width 12.4 Platelet Count 328 # Mean Platelet Volume 8.5 Immature Granulocytes % 0.700 H Neutrophils % 59.5 Lymphocytes % 21.6 Monocytes % 8.5 Eosinophils % 9.2 H Basophils % 0.5 Nucleated Red Blood Cells % 0.0 Immature Granulocytes # 0.060 H Neutrophils # 5.2 Lymphocytes # 1.9 Monocytes # 0.7 Eosinophils # 0.8 H Basophils # 0.0 Nucleated Red Blood Cells # 0.0 Sodium Level 141 Potassium Level 4.4 Chloride Level 105 Carbon Dioxide Level 26 Anion Gap 10 Blood Urea Nitrogen 9 Creatinine 0.63 Est Glomerular Filtrat Rate mL/min > 60 Glucose Level 92 Calcium Level 9.1 Phosphorus Level 5.0 H Magnesium Level 2.0 Medications Medication Current Medications IV Flush (NS 3 ml) 3 ml PER PROTOCOL IV ; Start 08/17/18 at 00:30 Ondansetron HCl (Zofran Inj) 4 mg Q6H PRN IV NAUSEA/VOMITING; Start 08/17/18 at 00:30 Acetaminophen (Tylenol Tab) 650 mg Q6H PRN PO .PAIN 1-3 OR TEMP Last administered on 08/19/18 21:33; Admin Dose 650 MG; Start 08/17/18 at 00:30 Acetaminophen/ Hydrocodone Bitart ([place] (5/325)) 1 tab Q6H PRN PO .MOD PAIN 4- 6 Last administered on 08/19/18at 00:01; Admin Dose 1 TAB; Start 08/17/18 at 00:30 Morphine Sulfate (morphine) 2 mg Q4H PRN IV SEVERE PAIN LEVEL 7-10 Last administered on 08/18/18at 01:10; Admin Dose 2 MG; Start 08/17/18 at 11:00 Enoxaparin Sodium (Lovenox) 40 mg DAILY SC Last administered on 08/19/18 08:46; Admin Dose 40 MG; Start 08/18/18 at 11:30 Amoxicillin/ Clavulanate Potassium (Augmentin) 875 mg BID PO Last administered on 08/19/18 21:33; Admin Dose 875 MG; Start 08/19/18 at 09:00 Trimethoprim/ Sulfamethoxazole (Bactrim (Ds)) 1 tab BID PO Last administered on 08/19/18 21:33; Admin Dose 1 TAB; Start 08/19/18 at 09:00 MEGAN LAURA MD Aug 20, 2018 06:56
[2018-08-20] MEDS: AMOXICILLIN/CLAV 875 MG TAB PO SCH (08:17)
[2018-08-20] MEDS: ENOXAPARIN 40 MG/0.4 ML SYG SC SCH (08:17)
[2018-08-20 08:29] VITALS: BP 91/65; PULSE 67; RESP 18
[2018-08-20] MEDS ORDERED: AMOX1TAB10 PO (10:13)
--- NOTE | 2018-08-20 10:15 | PDOCDIS ---
Discharge Instructions CONDITION [id number] Patient Condition: [id number] Stable HOME CARE INSTRUCTIONS: [id number] Diet Instructions: [id number] Regular ACTIVITY: [id number] Activity Restrictions: [id number] No Restrictions [id number] Bathing Restrictions: [id number] Shower FOLLOW UP/APPOINTMENTS Follow-up Plan Follow-up with your primary care physician in 1 week. OTHER ORDERS: Other Orders: 1. Complete the course of antibiotics. 2. Take a regular diet. 3. Resume activities as tolerated. 4. May resume breast-feeding. 5. Please go to the nearest emergency room if you have worsening right breast pain/swelling, persistent fevers, or any other unusual signs/symptoms. JEFF ANTHONY NP Aug 20, 2018 10:15
--- NOTE | 2018-08-20 10:22 | DS ---
Date/Time of Note Date/Time of Note DATE: 08/20/18 TIME: 10:15 Discharge Summary Admission/Discharge Info Admit Date/Time Aug 16, 2018 at 23:56 Discharge Date/Time Discharge Diagnosis 1. Sepsis with leukocytosis, tachycardia, and febrile illness, present on adm ission. 2. Lactational mastitis with underlying abscess of the right breast. 3. Palpable 4 x 2.7 x 4.3 cm heterogeneous echotexture largely hypoechoic solid appearing mass of the right breast. S/P ultrasound-guided drainage of 15 ml of pus on 08/17/2018. 4. Breast feeding status. 5. Asthma. Patient Condition: Stable Consults 1. Enoch Hall MD, Infectious Diseases. Procedures Right Breast Ultrasound IMPRESSION: Palpable 4 x 2.7 x 4.3 cm heterogeneous echotexture largely hypoechoic solid appearing mass with irregular angulated spiculated appearing margins with vascular flow at the margin of the mass suspicious for malignancy. The mass is at 9 o'clock position of the right breast. Ultrasound Guided Right Breast Biopsy and Aspiration CLINICAL INDICATION: Right breast mass. IMPRESSION: 1. Satisfactory ultrasound-guided right breast biopsy. 2. The mass is due to an abscess and 15 ml of pus was aspirated. Fluid was sent for culture and sensitivity. Hx of Present Illness This is a 33-year-old female who had a normal vaginal delivery on 07/15/2018. The patient has a prior history of fibroma of the right breast approximately 3 years ago status post surgical removal. The patient came to the emergency room with chief complaint of fevers, chills, generalized body aches, and right breast pain that has been going on for the past 2 weeks. The patient had underlying leukocytosis, febrile illness (101.6), and tachycardia, present on admission. The patient was admitted inpatient setting for further treatment and evaluation. Hospital Course The patient had a palpable 4 x 2.7 x 4.3 cm heterogeneous echotexture largely hypoechoic solid appearing mass of the right breast. The patient also had evidence of underlying right mastitis. Therefore, ultrasound-guided biopsy/drainage of the right breast was ordered. The patient underwent an ultrasound-guided drainage of the right breast with the drainage of 15 ml of pus on 08/17/2018. Surgical consult was also obtained. Nevertheless, the patient was never evaluated by the surgeon. As per the radiologist notes, the patient's masslike lesion on the right breast was secondary to the underlying abscess. The patient's abscess grew out Staph aureus. The patient's pathology was negative for any malignancy. Meanwhile, the patient was started on broad-spectrum antibiotics including coverage for anaerobes and MRSA. Once the patient's culture was positive for MSSA, the patient was antibiotic was switched to Augmentin. The patient will complete a course of 10 days of Augmentin. The patient had significant body aches as well as a weakness of bilateral upper and lower extremities. Therefore, the patient underwent multiple imaging studies including imaging of the brain, cervical, and thoracic spine with no evidence of any acute pathology. As a matter of fact, once the patient's sepsis resolved, the patient's body aches and weakness resolved. The patient was breast-feeding prior to this hospitalization. Therefore, the patient was pumping and dumping her breast milk. Meanwhile, the patient expressed a desire to stop breast-feeding. Nevertheless, the patient was informed that she may resume breast-feeding and and there is no need to stop breast-feeding because of the underlying abscess or use of current antibiotic therapy. The patient's chronic problems include asthma. The patient did not have any evidence of bronchospasms. The patient remained stable. The patient had a stable hospital course. The patient was cleared by infectious diseases to be discharged home. Discharge Instructions 1. Complete the course of antibiotics. 2. Take a regular diet. 3. Resume activities as tolerated. 4. May resume breast-feeding. 5. Please go to the nearest emergency room if you have worsening right breast pain/swelling, persistent fevers, or any other unusual signs/symptoms. The patient verbalized understanding of discharge instructions. At this time I would like to thank all the consultants for seeing the patient and providing clinical recommendations. The patient was seen in collaboration with Dr. Mendoza. Home Meds Active Scripts Amoxicillin/Potassium Clav (Amox-Clav 875-125 mg Tablet) 875-125 mg Tab, 875 MG PO BID, #17 TAB Prov:JEFF ANTHONY FILM LABORATORY TECHNICIAN 08/20/18 Discontinued Reported Medications Vit No.124/Iron/FA ( Vitamin Tablet) 1 Each Tablet, 1 EACH PO DAILY, TAB 07/15/18 Follow-up Plan Follow-up with your primary care physician in 1 week. Primary Care Provider Not On Staff Doctor Time spent on discharge: > 30 minutes Pending Labs RUN DATE: 08/19/18 [facility] PAGE 1 RUN TIME: 17 [id number] [place] [address] Esteban Coreas M.D. [employer] Jessica Koehler M.D. [employer] FLOR#: [id number] ---- Name: FLORENCE COPE Age/Sex: 33/F Attend Dr: DIANA COURTNEY MD Acct: [id number] MR# : [id number] : 1985 Location: MS1 402-A Admit: 08/16/18 Specimen: [id number] Status: Resulted Kyle: 08/17/18 Rcvd: 08/17/18120 Source: RIGHT SUSAN Cardoza Descrip: Procedure Result Microbiology GRAM STAIN Final POLYMORPH. LEUKOCYTE RARE GRAM POS COCCI IN CLUSTER 1+ WOUND CULTURE Preliminary Organism 1 COAGULASE NEGATIVE STAPH QUANTITY 1+ COAG NEG M.I.C. RX --------- --- CEFAZOLIN R CIPROFLOXACIN <=0.5 S CLINDAMYCIN R DOXYCYCLINE I ERYTHROMYCIN >=8 R LEVOFLOXACIN <=0.12 S OXACILLIN >=4 R PENICILLIN-G >=0.5 R RIFAMPIN <=0.5 S VANCOMYCIN 2 S TRIMETHOPRIM/SULFAMETHOXAZOLE 20 S ............... ............................................................................. Flags: Critical Hi = *H Critical Lo = *L Microbiology Abnormal = * Abnormal Hi = H Abnormal Lo = L Blood Bank Abnormal = * Susceptability Flags: S = Sensitive R = Resistant I = Intermediate END OF REPORT [facility] a non-profit non-sectarian community asset [id number] [place] [address] ; Lab No: [id number] Date: 08/17/2018 SPECIMEN: Right breast biopsy CLINICAL: 9 o'clock abscess, right breast GROSS EXAMINATION: Received in formalin are five needle core biopsies of mays-white and yellow tissue that measure less than 0.1 cm in greatest dimension up to 0.7 x 0.2 x 0.1 cm. Marked with black ink and totally submitted in one cassette. MICROSCOPIC DIAGNOSIS: Mass right breast at 9 o'clock, core needle biopsies: -- Breast parenchyma showing an acute abscess with abundant purulent contents, and extensive acute and chronic inflammation in the adjacent stroma, with vascular and fibroblastic proliferation. -- Mammary lobules with secretory changes. -- There is no evidence of malignancy. Laboratory Tests Test 08/20/18 04:43 White Blood Count 8.7 10^3/ul (4.8-10.8) Red Blood Count 4.08 10^6/ul (4.20-5.40) Hemoglobin 12.3 g/dl (12.0-16.0) Hematocrit 37.2 % (37.0-47.0) Mean Corpuscular Volume 91.2 fl (82.0-101.0) Mean Corpuscular Hemoglobin 30.1 pg (29.0-33.0) Mean Corpuscular Hemoglobin Concent 33.1 g/dl (32.0-37.0) Red Cell Distribution Width 12.4 % (11.5-14.5) Platelet Count 328 10^3/UL (140-415) Mean Platelet Volume 8.5 fl (7.4-10.4) Immature Granulocytes % 0.700 % (0.001-0.429) Neutrophils % 59.5 % (39.0-77.0) Lymphocytes % 21.6 % (15.0-51.0) Monocytes % 8.5 % (0.0-11.0) Eosinophils % 9.2 % (0.0-7.0) Basophils % 0.5 % (0.0-2.0) Nucleated Red Blood Cells % 0.0 /100WBC (0.0-0.0) Immature Granulocytes # 0.060 10^3/ul (0.0-0.031) Neutrophils # 5.2 10^3/ul (1.6-7.5) Lymphocytes # 1.9 10^3/ul (0.8-2.9) Monocytes # 0.7 10^3/ul (0.3-0.9) Eosinophils # 0.8 10^3/ul (0.0-0.5) Basophils # 0.0 10^3/ul (0.0-0.1) Nucleated Red Blood Cells # 0.0 10^3/ul (0.0-0.0) Sodium Level 141 mmol/L (135-144) Potassium Level 4.4 mmol/L (3.5-5.1) Chloride Level 105 mmol/L (97-110) Carbon Dioxide Level 26 mmol/L (21-31) Anion Gap 10 (5-13) Blood Urea Nitrogen 9 mg/dl (7-20) Creatinine 0.63 mg/dl (0.44-1.00) Est Glomerular Filtrat Rate mL/min > 60 mL/min (>60) Glucose Level 92 mg/dl (70-220) Calcium Level 9.1 mg/dl (8.4-10.2) Phosphorus Level 5.0 mg/dl (2.5-4.9) Magnesium Level 2.0 mg/dl (1.7-2.5) JEFF ANTHONY NP Aug 20, 2018 10:22
== END 2018-08-20 13:14 | disposition home or self-care (01) | DRG 776 ==
LOC: E/R 19:37 → MS1 23:56
PROVIDERS: ADMIT Internal Medicine; ATTEND Internal Medicine
PROC: 0HBT3ZX Excision of Right Breast, Percutaneous Approach, Diagnostic (ICD-10-PCS; principal; 2018-08-17)
DX: O85 Puerperal sepsis (principal); O86.20 Urinary tract infection following delivery, unspecified; O91.12 Abscess of breast associated with the puerperium; B95.61 Methicillin susceptible Staphylococcus aureus infection as the cause of diseases classified elsewhere; M62.81 Muscle weakness (generalized)
CPT/HCPCS: 36415; 70450; 71045; 72125; 72128; 74177; 76642; 76856; 76942; 80048; 80053; 80202; 81001; 81003; 81025; 82550; 83605; 83735; 84100; 85025; 85651; 86140; 87070; 87075; 87086; 87400; 88307; 93005; 93970; 96374; 96375; 97161; J0295; J0696; J1650; J1885; J2270; J3370; J7030; J7050; Q9967

== ENCOUNTER 2018-10-26 05:41 | Day surgery (SDC) | payer MEDICAID ==
--- NOTE | 2018-10-25 08:06 | PREOPHP ---
DATE OF ADMISSION: 10/26/2018 HISTORY OF PRESENT ILLNESS: Ms. Juan Alberto King is a 33-year-old 3, para 3, desires perm anent surgical sterilization. PAST MEDICAL HISTORY: Asthma. MEDICATIONS: Albuterol p.r.n. PAST SURGICAL HISTORY: None. OBSTETRICAL HISTORY: x3 vaginal delivery. Her last delivery was on 07/15/2018. GYNECOLOGIC HISTORY: 13, regular 3 to 4 days. Denies any sexually transmitted infections. Sexually active with 1 partner. SOCIAL HISTORY: Denies any smoking, drugs or alcohol. FAMILY HISTORY: None. REVIEW OF SYSTEMS: All within normal except history of present illness. PHYSICAL EXAMINATION: HEENT: Within normal. LUNGS: CTA bilateral. CARDIOVASCULAR: S1, S2, regular rhythm. ABDOMEN: Soft, nontender, negative distention. EXTREMITIES: Negative edema. No calf tenderness. VAGINAL: Normal external genitalia. Cervix negative CMT, negative lesions. Adnexa negative mass, n ontender bilateral. Fundus within normal limits. ASSESSMENT: Multiparity, desires permanent surgical sterilization. PLAN: Consent for laparoscopic bilateral tubal sterilization. Risks, benefits and alternatives expl ained. All questions were answered. Dictated By: RASHIDA BARCENAS/TOSHA Conf#: [id number] DID#: [id number]
[~2018-10-26] VITALS: Ht 157.5 cm; Wt 55.3 kg
[2018-10-26] VITALS (13 sets, daily range): BP systolic 94–118; BP diastolic 55–70; PULSE 58–74; RESP 18–24; Ht 157.5 cm; Wt 55.3 kg
[~2018-10-26 05:41] MED LIST changes: +AMOX1TAB10 PO; -PREN-93 PO
--- NOTE | 2018-10-26 07:21 | PREAC ---
Date/Time of Note Date/Time of Note DATE: 10/26/18 TIME: : Anesthesia Eval and Record Evaluation Time Pre-Procedure Interview DATE: 10/26/18 TIME: 07:19 Age 33 Sex female NPO: 8 hrs Preoperative diagnosis desires permanent sterilzation Planned procedure lap BTL Past Medical History Past Medical History: Includes Pulm: Asthma Surgery & Anesthesia Issues No known issue Meds Anticoagulation: No Beta Amanda within 24 hr: No Reason Beta Amanda not given: Pt. not on B-Amanda Discontinued Scripts Amoxicillin/Potassium Clav (Amox-Clav 875-125 mg Tablet) 875-125 mg Tab, 875 MG PO BID, #17 TAB Prov:JEFF ANTHNOY MARKETING OPERATIONS SPECIALIST 08/20/18 Meds reviewed: Yes Allergies Coded Allergies: No Known Allergy (Verified , 10/26/18) Allergies Reviewed: Yes Labs/Studies Labs Reviewed: Reviewed by anesthesiologist Result Diagram: 10/26/18 0628 Laboratory Tests 10/26/18 06:28 test: Negative Pre-procedure Exam Airway: Adequate mouth opening, Adequate thyromental dist Mallampati: Mallampati II Teeth: Normal Lung: Normal Heart: Normal ASA Physical Status ASA physical status: 2 Emergency: None Planned Anesthetic General/MAC: ETT Planned Pain Management Parenteral pain med, Local by surgeon Pre-operative Attestations Prior to commencing anesthesia and surgery, the patient was re-evaluated, there was verification of: *The patient's identity *The results of appropriate recent lab work and preoperative vital signs *The above evaluation not changing prior to induction *Anesthetic plan, risk benefits, alternative and complications discussed with patient/family; questions answered; patient/family understands, accepts and wishes to proceed. BRIT RICHARDS DIABETES PHYSICIAN Oct 26, 2018 07:20
[2018-10-26] MEDS ORDERED: FENTAnyl 50 MCG/ML VIAL ONE (07:44)
[2018-10-26] MEDS ORDERED: GLYCOPYRROLATE 0.4 MG INJ ONE (07:44)
[2018-10-26] MEDS ORDERED: ONDANSETRON 4 MG INJ ONE (07:44)
[2018-10-26] MEDS ORDERED: NEOSTIGMINE 3 MG/3 ML SYRINGE ONE (07:44)
[2018-10-26] MEDS ORDERED: DEXAMETHASONE 4 MG/ML 5 ML INJ ONE (07:44)
[2018-10-26] MEDS ORDERED: FAMOTIDINE 20 MG INJ ONE (07:49)
[2018-10-26] MEDS ORDERED: CEFAZOLIN 1 GM INJ ONE (08:04)
[2018-10-26] MEDS ORDERED: ROCURONIUM 50 MG INJ ONE (08:05)
[2018-10-26] MEDS ORDERED: LIDOCAINE 2% (SDV) 5 ML INJ ONE (08:05)
[2018-10-26] MEDS ORDERED: KETOROLAC 30 MG INJ ONE (08:29)
--- NOTE | 2018-10-26 08:50 | PAC ---
Date/Time of Note Date/Time of Note DATE: 10/26/18 TIME: 08:50 Post-Anesthesia Notes Post-Anesthesia Note Last documented vital signs BP 118/68 Sp02 100% HR 70 RR 12 T 98.2F Activity: WNL Respiratory function: WNL Cardiovascular function: WNL Mental status: Baseline Pain reasonably controlled: Yes Hydration appropriate: Yes Nausea/Vomiting absent: Yes BRIT RICHARDS CRNA Oct 26, 2018 08:50
[2018-10-26] MEDS ORDERED: ONDANSETRON 4 MG INJ IV PRN (09:00)
[2018-10-26] MEDS ORDERED: LABETALOL HCL 20MG INJ IV PRN (09:00)
[2018-10-26] MEDS ORDERED: HYDROmorphONE 1 MG/5 ML IV SYRINGE IV PRN (09:00)
[2018-10-26] MEDS ORDERED: FENTAnyl 50 MCG/ML VIAL IV PRN (09:00)
[2018-10-26] MEDS ORDERED: MEPERIDINE 25 MG INJ IV PRN (09:00)
[2018-10-26] MEDS ORDERED: ALBUTEROL 0.083% (NEB) 2.5 MG/3 ML AMP HHN PRN (09:00)
[2018-10-26] MEDS ORDERED: OXYCODONE/ACETAMINOPHEN (5/325) TAB PO PRN (09:00)
--- NOTE | 2018-10-26 09:05 | OPPN ---
Date/Time of Note Date/Time of Note DATE: 10/26/18 TIME: 09:03 Operative Report Planned Procedure Procedure date Oct 26, 2018 Procedure(s) laparoscopic bilateral tubal fulguration Performed by see signature line Money Market Clerk: RASHIDA BARCENAS MD 2nd Money Market Clerk none Pre-procedure diagnosis Multiparity, desires permanent surgical sterilization. [id number] Anesthesia Type: Adrwd2e general Post-Procedure Post-procedure diagnosis same Findings normal uterus tubes and ovaries Estimated Blood Loss: minimal Specimen(s) none Grafts/Implant(s) none Complication(s) none RASHIDA BARCENAS MD Oct 26, 2018 09:05
--- NOTE | 2018-10-26 09:06 | PD.PPDC ---
STEAM LOCOMOTIVE FIRER/FIREMAN Discharge Instruction Condition [id number] Patient Condition: Ifwmf0s Fair Diet Zvezv9Lk Diet: Ezaqp1h Resume Regular Diet Activity/Restrictions Eqwzf7Pb Activity: Xgcjw9f Normal Activity May Shower Tomud4Ls Restrictions: Rmuoi3i No Exercising No Lifting No Driving No Sexual Activity Nothing in the Vagina No [place] No Tampons, douche Follow-up Follow-up with Physician: 2, Week/Weeks Return to clinic for Edicg1Mj KITCHEN CHEF Instructions: [place] Fever greater than 101 Chills Worsening abdominal pain Excessive Vaginal Bleeding More than 2 pads per hour Unable to tolerate diet Ypllf7Vg OB Instructions: Bhdbs9f Breast Tenderness Depression Blurried Vision Headache Mqjwl8Er Surgical Instructions: Isszc2n Incisional Drainage Incisional Redness RASHIDA BARCENAS MD Oct 26, 2018 09:05
--- NOTE | 2018-10-26 13:56 | OPR ---
DATE OF OPERATION: 10/26/2018 PRIMARY DIAGNOSES: 1. Multiparity. 2. Desires permanent surgical sterilization. POSTOPERATIVE DIAGNOSES: 1. Multiparity. 2. Desires permanent surgical sterilization. PROCEDURE: Laparoscopic bilateral tubal fulguration. SURGEON: Rashida Sanchez MD RESEARCH PROGRAM INTERN: None. ANESTHESIA: General. COMPLICATIONS: None. ESTIMATED BLOOD LOSS: Minimal. FINDINGS: Normal uterus, tubes and ovaries. DESCRIPTION OF PROCEDURE: After explaining the risks, benefits and alternatives, the patient consent signed in chart, the patient was taken to the operating room where general anesthesia was obtained w katharine childress. The patient was then examined under anesthesia and found to have a small antevert ed uterus with normal adnexa. She was in a dorsal lithotomy position, prepared and draped in a steri le fashion. A heavy weighted speculum was then placed in the patient's vagina and the anterior lip o f the cervix was grasped with a single tooth tenaculum. A HUMI uterine manipulator was then advanced into the uterus to provide means to manipulate the uterus. The speculum was then removed from the v agina. Attention was then turned to the patient's abdomen where a 5 mm skin incision was made at the umbilical fold. The Veress needle was carefully introduced into the peritoneal cavity at 45-degree angle while tenting the abdominal wall. Intraperitoneal placement was confirmed by use of water-fill ed syringe and drop in intraabdominal pressure with insufflation of CO2 gas. The trocar and sleeve w ere then advanced without difficulty into the abdomen where intra-abdominal placement was confirmed b y laparoscope. Pneumoperitoneum was obtained with 4 liters of CO2 gas and a 5 mm trocar and sleeve w ere then advanced without difficulty into the abdomen where intraabdominal placement was confirmed by laparoscope. A second skin incision was made 2 cm above the symphysis pubis in the midline. The se cond trocar and sleeve were then advanced under direct visualization. A survey of the patient's pelv is and abdomen revealed normal. At this point, the right fallopian tube was fulgurated at multiple a reas of the ampullary and isthmic areas with good blanching and similarly, the left fallopian tube wa s fulgurated. The instruments were then removed from the patient's abdomen and the incision was repa ired with 3-0 Vicryl. The HUMI was then removed from the vagina with no bleeding noted from the cerv ix. The patient tolerated procedure well. All counts were correct. The patient was taken to recove ry room in stable condition. Dictated By: RASHIDA BARCENAS/TOSHA Conf#: [id number] DID#: [id number]
== END 2018-10-26 11:20 | disposition home or self-care (01) ==
LOC: SDS 05:41 → EDSTATUS 11:30
PROVIDERS: ATTEND Obstetrics & Gynecology
DX: Z30.2 Encounter for sterilization (principal); J45.909 Unspecified asthma, uncomplicated
CPT/HCPCS: 58670; 84702; 85025; 86900; 86901; J0690; J1100; J1885; J2175; J2405; J2710; J3010; Z7610